=== PATIENT | female | born 1985 | race Caucasian/White ===

== ENCOUNTER 2020-03-29 15:07 | Emergency (ER) | payer OTHER ==
[2020-03-29] MEDS ORDERED: Ativan 2 MG/1 ML VIAL ONE (15:28)
[2020-03-29] MEDS ORDERED: Haldol 5 MG ONE ×3 (15:40→18:30)
[2020-03-29] MEDS ORDERED: Ativan 2 MG/1 ML VIAL IM ONE (15:42)
[2020-03-29] MEDS ORDERED: Haldol 5 MG IM ONE ×3 (15:43→18:28)
[2020-03-29] MEDS ORDERED: Zofran 4 MG/2 ML VIAL IV ONE (15:43)
[2020-03-29 17:16] LABS: Absolute Neutrophil Ct (ANC) 5.25 (1.4-6.9); BASOPHIL % 0.2 % (0.0-0.4); Basophil (Absolute #) 0.02 (0-0.4); Eosinophil % 0.5 % (0.00-5.0); Eosinophil (Absolute #) 0.04 (0-0.5); Hematocrit 47.8 % (35-47); Hemoglobin 15.8 gm/dl (12.0-16.0); Lymphocyte (Absolute #) 3.19 (1.0-4.6); Lymphocytes % 36.2 % (24.0-44.0); Mean Cell Volume 101.3 fl (78-100); Mean Corpuscular Hemoglobin 33.5 pg (26-32); Mean Corpuscular Hgb Concent. 33.1 g/dl (32-36); Monocyte (Absolute #) 0.32 (0.0-1.3); Monocytes % 3.6 % (0.0-12.0); Neutrophil % 59.5 % (36.0-66.0); Platelet Count 331 K/mm3 (150-450); Red Blood Count 4.72 M/mm3 (4.1-5.4); Red Cell Distribution Width 13.5 % (11.5-14.0); White Blood Count 8.8 K/mm3 (4.0-10.5)
--- NOTE | 2020-03-29 17:19 | ERPHSYRPT ---
- History of Present Illness Time Seen by Provider: 03/29/20 17:18 Source: patient, police Exam Limitations: clinical condition, intoxication Patient Subjective Stated Complaint: Alcohol intoxication Triage Nursing Assessment: Patient brought back to ED via EMS. Patient yelling and being belingerent to staff. Patient smells of alcohol. Officer Aaron states he was called to a scene where patient was a passenger in a carseat when the otr owner operator truck driver (her boyfriend) was performing CPR on patient. Patient's boyfriend stated she was unresponsive and he did CPR on her. Unable to obtain history on patient. Physician History: This is a 34-year-old white female who is intoxicated and brought in by the ambulance service. Per police officers and patient's significant other, the patient had been doing drugs of unspecified type as well as consuming alcohol. The amount and type is unknown. Patient arrived on the EMS bed yelling and screaming cursing. Patient significant other states that she went unresponsive in the car. This was witnessed by the police officers who were nearby and it appeared as though CPR was in progress. The significant other told the police officers that the patient went unresponsive and therefore he began CPR on her. Patient's daughter states that the patient has been drinking significantly for couple months. Patient has also not been taking her antipsychotic medications for several months. Earlier in the year, patient was seen at [facility] in the psychiatric department inpatient. Timing/Duration: today Severity: moderate Associated Symptoms: denies symptoms, other (Patient yelling and screaming stating that there is nothing wrong with her and she wants to leave.) Allergies/Adverse Reactions: No Known Drug Allergies Allergy (Unverified 03/29/20 15:13) Hx Tetanus, Diphtheria Vaccination/Date Given: (unknown) Hx Influenza Vaccination/Date Given: (unknown) Hx Pneumococcal Vaccination/Date Given: (unknown) Immunizations Up to Date: (unknown) Travel Risk - International Travel Have you traveled outside of the country in past 3 weeks: No - Coronavirus Screening Are you exhibiting any of the following symptoms?: No Close contact with a COVID-19 positive Pt in past 14-21 Days: No - Review of Systems Constitutional: No Symptoms Eyes: No Symptoms Ears, Nose, & Throat: No Symptoms Respiratory: No Symptoms Cardiac: No Symptoms Abdominal/Gastrointestinal: No Symptoms Genitourinary Symptoms: No Symptoms Musculoskeletal: No Symptoms Skin: No Symptoms Psychological: Alcohol Abuse, Drug Abuse, Emotional Lability, Mood Changes Endocrine: No Symptoms Hematologic/Lymphatic: No Symptoms Immunological/Allergic: No Symptoms All Other Systems: Reviewed and Negative - Past Medical History Pertinent Past Medical History: Yes Neurological History: No Pertinent History ENT History: No Pertinent History Cardiac History: No Pertinent History Respiratory History: No Pertinent History Endocrine Medical History: No Pertinent History Musculoskeletal History: No Pertinent History GI Medical History: No Pertinent History History: No Pertinent History Psycho-Social History: Other (Schizophrenia) Female Reproductive Disorders: No Pertinent History Other Medical History: Patient poor historian - Past Surgical History Neuro Surgical History: No Pertinent History Cardiac: No Pertinent History Respiratory: No Pertinent History Gastrointestinal: No Pertinent History Genitourinary: No Pertinent History Musculoskeletal: No Pertinent History Female Surgical History: No Pertinent History Other Surgical History: Patient poor historian - Social History Smoking Status: Unknown if ever smoked Exposure to second hand smoke: No (unknown) Patient Lives Alone: No - Female History Hx Last Menstrual Period: unknown Hx Now: (unknown) - Nursing Vital Signs Nursing Vital Signs: Initial Vital Signs Temperature 98.0 F 03/29/20 15:14 Pulse Rate 122 H 03/29/20 15:14 Respiratory Rate 20 03/29/20 15:14 Blood Pressure 136/88 03/29/20 15:14 O2 Sat by Pulse Oximetry 98 03/29/20 15:14 Pain Scale Pain Intensity 0 - Physical Exam General Appearance: other (Belligerent aggressive. Smells of alcohol) Eye Exam: PERRL/EOMI, eyes nml inspection Ears, Nose, Throat Exam: normal ENT inspection, moist mucous membranes Neck Exam: normal inspection, non-tender, supple, full range of motion Respiratory Exam: normal breath sounds, lungs clear, airway intact, No chest tenderness, No respiratory distress Cardiovascular Exam: tachycardia Gastrointestinal/Abdomen Exam: soft, normal bowel sounds, No tenderness Pelvic Exam: not done Rectal Exam: not done Back Exam: normal inspection, normal range of motion, No CVA tenderness Extremity Exam: normal inspection, normal range of motion, pelvis stable Neurologic Exam: alert, oriented x 3, cooperative, home mortgage 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 act specialist II-XII nml as tested, normal mood/affect, nml cerebellar function, nml station & gait, sensation nml Skin Exam: normal color, warm, dry Lymphatic Exam: No adenopathy SpO2 Interpretation: normal SpO2: 96 O2 Delivery: Room Air - Course Nursing assessment & vital signs reviewed: Yes EKG Interpreted by Me: RATE (78), Sinus Rhythm, NORMAL AXIS, NORMAL INTERVALS, NORMAL QRS, Other (No comparison EKG) Ordered Tests: Active Orders 24 hr Category Date Time Status EKG-ER Only STAT Care 03/29/20 15:43 Active IV Insertion STAT Care 03/29/20 15:43 Active Pulse Oximetry (ED) STAT Care 03/29/20 15:43 Active ACETAMINOPHEN Stat Lab 03/29/20 17:10 Completed CBC W DIFF Stat Lab 03/29/20 17:10 Completed CMP Stat Lab 03/29/20 17:10 Completed CULTURE,URINE Stat Lab 03/29/20 18:08 Received ETHYL ALCOHOL Stat Lab 03/29/20 17:10 Completed HCG,QUALITATIVE URINE Stat Lab 03/29/20 18:08 Completed SALICYLATE Stat Lab 03/29/20 17:10 Completed UA W/RFX UR CULTURE Stat Lab 03/29/20 18:08 Completed Urine Triage Profile Stat Lab 03/29/20 18:08 Completed Medication Summary Discontinued Medications Generic Name Dose Route Start Last Admin Trade Name Freq PRN Reason Stop Dose Admin Ceftriaxone Sodium 1,000 mg 03/29/20 18:27 03/29/20 18:36 Rocephin 1000 Mg Inj IM 03/29/20 18:28 1,000 mg STAT ONE Administration Ceftriaxone Sodium Confirm 03/29/20 18:31 Rocephin 1000 Mg Inj Administered 03/29/20 18:32 Dose 1,000 mg .ROUTE .STK-MED ONE Haloperidol Lactate Confirm 03/29/20 15:40 Haldol 5 Mg Administered 03/29/20 15:41 Dose 5 mg .ROUTE .STK-MED ONE Haloperidol Lactate 5 mg 03/29/20 15:43 03/29/20 15:50 Haldol 5 Mg IM 03/29/20 15:44 5 mg STAT ONE Administration Haloperidol Lactate 5 mg 03/29/20 16:20 03/29/20 16:29 Haldol 5 Mg IM 03/29/20 16:21 5 mg STAT ONE Administration Haloperidol Lactate Confirm 03/29/20 16:27 Haldol 5 Mg Administered 03/29/20 16:28 Dose 5 mg .ROUTE .STK-MED ONE Haloperidol Lactate 5 mg 03/29/20 18:28 Haldol 5 Mg IM 03/29/20 18:29 STAT ONE Haloperidol Lactate Confirm 03/29/20 18:30 Haldol 5 Mg Administered 03/29/20 18:31 Dose 5 mg .ROUTE .STK-MED ONE Lidocaine HCl Confirm 03/29/20 18:31 Xylocaine 1% Hcl 20 Ml Mdv Administered 03/29/20 18:32 Dose 3 ml .ROUTE .STK-MED ONE Lorazepam Confirm 03/29/20 15:28 Ativan 2 Mg/1 Ml Vial Administered 03/29/20 15:29 Dose 2 mg .ROUTE .STK-MED ONE Lorazepam 2 mg 03/29/20 15:42 03/29/20 15:51 Ativan 2 Mg/1 Ml Vial IM 03/29/20 15:43 2 mg STAT ONE Administration Ondansetron HCl 4 mg 03/29/20 15:43 03/29/20 18:37 Zofran 4 Mg/2 Ml Vial IV 03/29/20 15:44 Not Given STAT ONE Lab/Rad Data: Laboratory Result Diagrams 03/29/20 17:10 03/29/20 17:10 Laboratory Results 03/29/20 03/29/20 03/29/20 Range/Units 18:08 18:08 18:08 WBC (4.0-10.5) K/mm3 RBC (4.1-5.4) M/mm3 Hgb (12.0-16.0) gm/dl Hct (35-47) % MCV (78-100) fl MCH (26-32) pg MCHC (32-36) g/dl RDW (11.5-14.0) % Plt Count (150-450) K/mm3 MPV (7.5-11.0) fl Gran % (36.0-66.0) % Eos # (Auto) (0-0.5) Absolute Lymphs (auto) (1.0-4.6) Absolute Monos (auto) (0.0-1.3) Lymphocytes % (24.0-44.0) % Monocytes % (0.0-12.0) % Eosinophils % (0.00-5.0) % Basophils % (0.0-0.4) % Absolute Granulocytes (1.4-6.9) Basophils # (0-0.4) Sodium (137-145) mmol/L Potassium (3.5-5.1) mmol/L Chloride (98-107) mmol/L Carbon Dioxide (22-30) mmol/L Anion Gap (5-15) MEQ/L BUN (7-17) mg/dL Creatinine (0.52-1.04) mg/dL Estimated GFR ML/MIN Glucose (74-106) mg/dL Calcium (8.4-10.2) mg/dL Total Bilirubin (0.2-1.3) mg/dL AST (14-36) U/L ALT (0-35) U/L Alkaline Phosphatase (38-126) U/L Serum Total Protein (6.3-8.2) g/dL Albumin (3.5-5.0) g/dL Urine Color YELLOW (YELLOW) Urine Appearance SLIGHTLY CLOUDY (CLEAR) Urine pH 6.0 (5-6) Ur Specific [place] 1.004 (1.005-1.025) Urine Protein NEGATIVE (Negative) Urine Ketones NEGATIVE (NEGATIVE) Urine Blood SMALL (0-5) Maged/ul Urine Nitrite NEGATIVE (NEGATIVE) Urine Bilirubin NEGATIVE (NEGATIVE) Urine Urobilinogen NEGATIVE (0-1) mg/dL Ur Leukocyte Esterase LARGE (NEGATIVE) Urine WBC (Auto) 26-50 (0-5) /HPF Urine RBC (Auto) 0-2 (0-2) /HPF U Hyaline Cast (Auto) 3-5 (0-2) /LPF U Epithel Cells (Auto) RARE (FEW) /HPF Urine Bacteria (Auto) RARE (NEGATIVE) /HPF Unidentified Crystals 2-5 (NEGATIVE) /HPF Urine Culture Reflexed ORDERED SEPARATELY (NO) Urine Glucose NEGATIVE (NEGATIVE) mg/dL Urine HCG, Qual NEGATIVE (Negative) Salicylates (2-20) mg/dL Urine Opiates Level NEGATIVE (NEGATIVE) Ur Methadone NEGATIVE (NEGATIVE) Acetaminophen (10-30) ug/ml Urine Barbiturates NEGATIVE (NEGATIVE) Ur Phencyclidine (PCP) NEGATIVE (NEGATIVE) Urine Amphetamine NEGATIVE (NEGATIVE) U Benzodiazepine Level NEGATIVE (NEGATIVE) Urine Cocaine NEGATIVE (NEGATIVE) Urine Marijuana (THC) NEGATIVE (NEGATIVE) Ethyl Alcohol (0-10) mg/dL 03/29/20 03/29/20 Range/Units 17:10 17:10 WBC 8.8 (4.0-10.5) K/mm3 RBC 4.72 (4.1-5.4) M/mm3 Hgb 15.8 (12.0-16.0) gm/dl Hct 47.8 H (35-47) % MCV 101.3 H (78-100) fl MCH 33.5 H (26-32) pg MCHC 33.1 (32-36) g/dl RDW 13.5 (11.5-14.0) % Plt Count 331 (150-450) K/mm3 MPV 8.0 (7.5-11.0) fl Gran % 59.5 (36.0-66.0) % Eos # (Auto) 0.04 (0-0.5) Absolute Lymphs (auto) 3.19 (1.0-4.6) Absolute Monos (auto) 0.32 (0.0-1.3) Lymphocytes % 36.2 (24.0-44.0) % Monocytes % 3.6 (0.0-12.0) % Eosinophils % 0.5 (0.00-5.0) % Basophils % 0.2 (0.0-0.4) % Absolute Granulocytes 5.25 (1.4-6.9) Basophils # 0.02 (0-0.4) Sodium 143 (137-145) mmol/L Potassium 3.8 (3.5-5.1) mmol/L Chloride 113 H (98-107) mmol/L Carbon Dioxide 19 L (22-30) mmol/L Anion Gap 15.0 (5-15) MEQ/L BUN 8 (7-17) mg/dL Creatinine 0.54 (0.52-1.04) mg/dL Estimated GFR > 60.0 ML/MIN Glucose 99 (74-106) mg/dL Calcium 9.2 (8.4-10.2) mg/dL Total Bilirubin 0.40 (0.2-1.3) mg/dL AST 35 (14-36) U/L ALT 30 (0-35) U/L Alkaline Phosphatase 79 (38-126) U/L Serum Total Protein 7.5 (6.3-8.2) g/dL Albumin 4.4 (3.5-5.0) g/dL Urine Color (YELLOW) Urine Appearance (CLEAR) Urine pH (5-6) Ur Specific [place] (1.005-1.025) Urine Protein (Negative) Urine Ketones (NEGATIVE) Urine Blood (0-5) Maged/ul Urine Nitrite (NEGATIVE) Urine Bilirubin (NEGATIVE) Urine Urobilinogen (0-1) mg/dL Ur Leukocyte Esterase (NEGATIVE) Urine WBC (Auto) (0-5) /HPF Urine RBC (Auto) (0-2) /HPF U Hyaline Cast (Auto) (0-2) /LPF U Epithel Cells (Auto) (FEW) /HPF Urine Bacteria (Auto) (NEGATIVE) /HPF Unidentified Crystals (NEGATIVE) /HPF Urine Culture Reflexed (NO) Urine Glucose (NEGATIVE) mg/dL Urine HCG, Qual (Negative) Salicylates < 1.0 L (2-20) mg/dL Urine Opiates Level (NEGATIVE) Ur Methadone (NEGATIVE) Acetaminophen < 10 L (10-30) ug/ml Urine Barbiturates (NEGATIVE) Ur Phencyclidine (PCP) (NEGATIVE) Urine Amphetamine (NEGATIVE) U Benzodiazepine Level (NEGATIVE) Urine Cocaine (NEGATIVE) Urine Marijuana (THC) (NEGATIVE) Ethyl Alcohol 182 H (0-10) mg/dL - Progress Progress: improved, re-examined Progress Note: 03/29/20 19:24 Medical decision making: This patient has been off her psychiatric medications for several months. She has been using illicit drugs and alcohol in an excessive manner per patient's daughter's history report. I believe this patient is a harm to herself. We will contact a [place] administrative law judge to place this patient in [facility] [place] [facility] and make arrangements for inpatient psychiatric therapy. 03/29/20 21:40 This patient has been accepted into [facility] inpatient psychiatric facility. Dr. Hernandez is the physician accepting this patient. Patient diagnosis is schizophrenia, bipolar disorder and alcohol intoxication Counseled pt/family regarding: lab results, diagnosis - Departure Departure Disposition: Transfer Clinical Impression: UTI (urinary tract infection), Schizophrenia, Acute alcohol intoxication Condition: Stable Critical Care Time: No Referrals: DOCTOR,NO FAMILY [Primary Care Provider] -
[2020-03-29 17:27] LABS: ALBUMIN 4.4 g/dL (3.5-5.0); ALKALINE PHOSPHATASE 79 U/L (38-126); BLOOD UREA NITROGEN 8 mg/dL (7-17); CHLORIDE 113 mmol/L (98-107); Calcium 9.2 mg/dL (8.4-10.2); Carbon Dioxide 19 mmol/L (22-30); Creatinine 1 0.54 mg/dL (0.52-1.04); EST GLOMERULAR FILTRATION RATE > 60.0 ML/MIN; ETHYL ALCOHOL 182 mg/dL (0-10); Glucose 99 mg/dL (74-106); Potassium 3.8 mmol/L (3.5-5.1); SGOT/AST 35 U/L (14-36); SGPT/ALT 30 U/L (0-35); SODIUM 143 mmol/L (137-145); Total Protein 7.5 g/dL (6.3-8.2)
[2020-03-29 17:29] LABS: ACETAMINOPHEN < 10 ug/ml (10-30); SALICYLATE < 1.0 mg/dL (2-20)
[2020-03-29 18:17] LABS: Appearance SLIGHTLY CLOUDY (CLEAR); Bacteria RARE /HPF (NEGATIVE); Bilirubin NEGATIVE (NEGATIVE); Blood SMALL Ery/ul (0-5); Epithelial Cells RARE /HPF (FEW); Glucose NEGATIVE (NEGATIVE); Ketones NEGATIVE (NEGATIVE); Leukocyte Esterase LARGE (NEGATIVE); Nitrite NEGATIVE (NEGATIVE); Protein,Urine Dip NEGATIVE (Negative); RBC 0-2 /HPF (0-2); Specific Gravity 1.004 (1.005-1.025); Urobilinogen NEGATIVE mg/dL (0-1); WBC 26-50 /HPF (0-5)
[2020-03-29] MEDS ORDERED: Rocephin 1000 MG INJ IM ONE (18:27)
[2020-03-29 18:29] LABS: Amphetamine,Urine NEGATIVE (NEGATIVE); Barbiturate,Urine NEGATIVE (NEGATIVE); Benzodiazepine,Urine NEGATIVE (NEGATIVE); Cocaine,Urine NEGATIVE (NEGATIVE); Methadone,Urine NEGATIVE (NEGATIVE); Opiate,Urine NEGATIVE (NEGATIVE); PCP,Urine NEGATIVE (NEGATIVE); THC,Urine NEGATIVE (NEGATIVE)
[2020-03-29] MEDS ORDERED: Rocephin 1000 MG INJ ONE (18:31)
[2020-03-29] MEDS ORDERED: XYLOCAINE 1% HCL 20 ML MDV ONE (18:31)
[2020-03-29 21:19] VITALS: BP 129/85; PULSE 74
[2020-03-30 00:03] VITALS: O2SAT 96
== END 2020-03-30 ==
LOC: ED 15:07
DX: N39.0 Urinary tract infection, site not specified (principal); F20.9 Schizophrenia, unspecified; F10.129 Alcohol abuse with intoxication, unspecified; F31.9 Bipolar disorder, unspecified
CPT/HCPCS: 36415; 80053; 80307; 81001; 84703; 85025; 87077; 87086; 87186; 93005; 94760; 96372; 99285; G0480; J0696; J1630; J2060

== ENCOUNTER 2020-04-15 19:45 | Emergency (ER) | payer OTHER ==
--- NOTE | 2020-04-15 21:02 | ERPHSYRPT ---
- History of Present Illness Time Seen by Provider: 04/15/20 20:48 Source: police (pt here for intermediate clearance) Exam Limitations: no limitations Physician History: Pt here for intermediate clearance. Pt denies chest pain, shortness of air, fever, vomiting, abdominal pain. Police state pt blew 112 on breath alcohol test. Allergies/Adverse Reactions: No Known Drug Allergies Allergy (Unverified 03/29/20 15:13) Hx Tetanus, Diphtheria Vaccination/Date Given: (unknown) Hx Influenza Vaccination/Date Given: (unknown) Hx Pneumococcal Vaccination/Date Given: (unknown) - Review of Systems Constitutional: No Fever Respiratory: No Dyspnea Cardiac: No Chest Pain Abdominal/Gastrointestinal: No Abdominal Pain, No Nausea, No Vomiting Neurological: No Headache All Other Systems: Reviewed and Negative - Past Medical History Pertinent Past Medical History: Yes Neurological History: No Pertinent History ENT History: No Pertinent History Cardiac History: No Pertinent History Respiratory History: No Pertinent History Endocrine Medical History: No Pertinent History Musculoskeletal History: No Pertinent History GI Medical History: No Pertinent History History: No Pertinent History Psycho-Social History: Other (Schizophrenia) Female Reproductive Disorders: No Pertinent History Other Medical History: Patient poor historian - Past Surgical History Neuro Surgical History: No Pertinent History Cardiac: No Pertinent History Respiratory: No Pertinent History Gastrointestinal: No Pertinent History Genitourinary: No Pertinent History Musculoskeletal: No Pertinent History Female Surgical History: No Pertinent History Other Surgical History: Patient poor historian - Social History Smoking Status: Unknown if ever smoked Exposure to second hand smoke: No (unknown) Patient Lives Alone: No - Physical Exam General Appearance: alert, other (odor of etoh on breath.) Eye Exam: PERRL/EOMI, other (accentuation of horizontal nystagmus.) Ears, Nose, Throat Exam: pharynx normal, moist mucous membranes Neck Exam: normal inspection Respiratory Exam: normal breath sounds, airway intact Cardiovascular Exam: normal heart sounds Gastrointestinal/Abdomen Exam: normal bowel sounds Back Exam: normal range of motion Extremity Exam: normal range of motion, No pedal edema Neurologic Exam: alert, oriented x 3, cooperative, sensation nml, No motor deficits Skin Exam: warm, dry SpO2 Interpretation: normal SpO2: 98 O2 Delivery: Room Air - Course Nursing assessment & vital signs reviewed: Yes - Progress Progress: unchanged - Departure Departure Disposition: Usp/Residential Clinical Impression: Alcohol intoxication Condition: Stable Critical Care Time: No Referrals: DOCTOR,NO FAMILY [Primary Care Provider] - Instructions: Alcohol Abuse and Alcoholism (DC) Additional Instructions: Follow up with private doctor tomorrow. Avoid alcohol.
[2020-04-15 21:03] VITALS: O2SAT 98
[2020-04-15 21:04] VITALS: BP 134/78; PULSE 86
== END 2020-04-15 21:59 | disposition home or self-care (01) ==
LOC: EEVIPCON 19:45 → ED 19:45
DX: F10.929 Alcohol use, unspecified with intoxication, unspecified (principal)
CPT/HCPCS: 99283

== ENCOUNTER 2021-07-19 20:06 | Observation (INO) | payer OTHER ==
[2021-07-19] MEDS ORDERED: MORPHINE SULFATE 4 MG INJ IM ONE (20:34)
[2021-07-19] MEDS ORDERED: MORPHINE SULFATE 4 MG INJ ONE ×2 (20:37→23:25)
--- NOTE | 2021-07-19 20:38 | ERPHSYRPT ---
- History of Present Illness Time Seen by Provider: 07/19/21 20:15 Historian: patient Exam Limitations: no limitations Patient Subjective Stated Complaint: pt states "I took a stool softner and I can feel it move." Triage Nursing Assessment: pt came into the er via ambulance; pt is axo x4; pt is restless, screaming, irritable; c/o constipation; pt states 10/10 pain to abd; pt states she took a stool softner 4 hours prior to coming in; pt states last BM was 2 days ago; pt denies N/V; abd is soft, tenderness; hypoactive bowel sounds in all quads; pt states she is passing gas; vitals wnl Physician History: 36-year-old female presented in the ER with chief complaint of constipation. Patient reports she recently started a new medication which probably caused her constipation to go worse. She has taken milk of mag almost 4-hour prior to arrival with no relief. She is complaining of perirectal/left lower quadran t/suprapubic area pain and it seems like there is hard stool but cannot push it out. Complaining of dull to sharp pain which comes in waves moderate to severe intensity. Denies any nausea or vomiting. No fever or chills Timing/Duration: day(s) (2), constant, gradual onset, worse Activities at Onset: rest Quality: cramping Abdominal Pain Onset Location: LLQ, suprapubic, other (perirectal ) Severity of Pain-Max: severe Severity of Pain-Current: severe Modifying Factors: Worsens With: palpation Associated Symptoms: denies symptoms Allergies/Adverse Reactions: No Known Drug Allergies Allergy (Verified 07/19/21 20:11) Home Medications: Divalproex Sodium 500 mg PO TID 07/20/21 [History] Docusate Sodium 100 mg PO BID PRN PRN 07/20/21 [History] Prazosin HCl 2 mg PO HS 07/20/21 [History] Risperidone Microspheres [Risperdal Consta] 50 mg IM UD 07/20/21 [History] Trazodone HCl 200 mg PO HS 07/20/21 [History] haloperidoL [Haloperidol] 5 mg PO TID PRN PRN 07/20/21 [History] Hx Tetanus, Diphtheria Vaccination/Date Given: No (unknown) Hx Influenza Vaccination/Date Given: No (unknown) Hx Pneumococcal Vaccination/Date Given: No (unknown) Travel Risk - International Travel Have you traveled outside of the country in past 3 weeks: No - Coronavirus Screening Are you exhibiting any of the following symptoms?: No Close contact with a COVID-19 positive Pt in past 14-21 Days: No - Vaccine Status Have you recieved a Covid-19 vaccination: Yes 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 - Vaccination Dates Dates if Unknown: unknown - Review of Systems Constitutional: No Symptoms Ears, Nose, & Throat: No Symptoms Respiratory: No Symptoms Cardiac: No Symptoms Abdominal/Gastrointestinal: Abdominal Pain, Constipation Genitourinary Symptoms: No Symptoms Musculoskeletal: No Symptoms Skin: No Symptoms Neurological: No Symptoms Endocrine: No Symptoms Hematologic/Lymphatic: No Symptoms - Past Medical History Pertinent Past Medical History: Yes Neurological History: No Pertinent History ENT History: No Pertinent History Cardiac History: No Pertinent History Respiratory History: No Pertinent History Endocrine Medical History: No Pertinent History Musculoskeletal History: No Pertinent History GI Medical History: No Pertinent History History: No Pertinent History Psycho-Social History: Bipolar, Depression, Other Female Reproductive Disorders: No Pertinent History Other Medical History: Patient poor historian - Past Surgical History Past Surgical History: Yes Neuro Surgical History: No Pertinent History Cardiac: No Pertinent History Respiratory: No Pertinent History Gastrointestinal: No Pertinent History Genitourinary: No Pertinent History Musculoskeletal: No Pertinent History Female Surgical History: Tubal Ligation, Other Other Surgical History: Patient poor historian - Social History Smoking Status: Current every day smoker Exposure to second hand smoke: Yes Drug Use: none Patient Lives Alone: No - Female History Hx Now: No - Nursing Vital Signs Nursing Vital Signs: Initial Vital Signs Temperature 97.4 F 07/19/21 20:13 Pulse Rate 94 H 07/19/21 20:13 Respiratory Rate 22 07/19/21 20:13 Blood Pressure 100/77 07/19/21 20:13 O2 Sat by Pulse Oximetry 98 07/19/21 20:13 Pain Scale Pain Intensity 0 - Physical Exam General Appearance: no apparent distress, alert Eye Exam: PERRL/EOMI Ears, Nose, Throat Exam: normal ENT inspection, pharynx normal Neck Exam: normal inspection, supple, full range of motion Respiratory Exam: normal breath sounds, lungs clear Cardiovascular Exam: regular rate/rhythm, normal heart sounds Gastrointestinal/Abdomen Exam: soft, normal bowel sounds, tenderness ( left lower abdominal tenderness), guarding Back Exam: normal inspection, normal range of motion Extremity Exam: normal inspection, normal range of motion, pelvis stable Neurologic Exam: alert, oriented x 3, cooperative Skin Exam: normal color SpO2 Interpretation: normal SpO2: 98 O2 Delivery: Room Air Ordered Tests: Medication Summary Discontinued Medications Generic Name Dose Route Start Last Admin Trade Name Freq PRN Reason Stop Dose Admin Divalproex Sodium 500 mg 07/20/21 10:00 07/21/21 09:01 Divalproex Sodium 250 Mg Tablet Delayed Release PO 08/19/21 09:59 500 mg TID DARON Administration Haloperidol 5 mg 07/20/21 10:00 07/21/21 09:00 Haloperidol 5 Mg Tablet PO 08/19/21 09:59 5 mg TID DARON Administration Haloperidol Lactate 2 mg 07/20/21 08:24 07/20/21 09:01 Haloperidol Lactate 5 Mg/Ml Vial IM 07/20/21 08:25 Not Given STAT ONE Hydromorphone HCl Confirm 07/20/21 00:08 Hydromorphone 1 Mg/1ml Inj 1 Mg/Ml Syringe Administered 07/20/21 00:09 Dose 1 mg .ROUTE .STK-MED ONE Hydromorphone HCl 1 mg 07/20/21 00:10 07/20/21 00:19 Hydromorphone 1 Mg/1ml Inj 1 Mg/Ml Syringe IV 07/20/21 00:11 Not Given STAT ONE Hydromorphone HCl 30 mg 07/20/21 08:08 07/20/21 18:18 Hydromorphone Hcl 30 Mg/30 Ml Percher Vial IV 07/25/21 08:07 30 mg UD PRN Administration PAIN Hydromorphone HCl 1 mg 07/20/21 08:27 07/20/21 09:00 Hydromorphone 1 Mg/1ml Inj 1 Mg/Ml Syringe IV 07/20/21 08:28 1 mg STAT ONE Administration Sodium Chloride 1,000 mls @ 999 mls/hr 07/19/21 21:34 07/19/21 22:39 Sodium Chloride 0.9% 1000 Ml IV 07/19/21 22:34 Infused .Q1H1M STA Infusion Sodium Chloride Confirm 07/19/21 21:40 Sodium Chloride 0.9% 1000 Ml Administered 07/19/21 21:41 Dose 1,000 mls @ ud .ROUTE .STK-MED ONE Piperacillin Sod/Tazobactam 100 mls @ 200 mls/hr 07/19/21 22:48 07/19/21 22:50 Sod 3.375 gm/ Sodium Chloride IV 07/19/21 23:17 200 mls/hr STAT ONE Administration Sodium Chloride 1,000 mls @ 125 mls/hr 07/19/21 23:00 07/21/21 05:43 Sodium Chloride 0.9% 1000 Ml IV 08/18/21 22:59 125 mls/hr .Q8H DARON Administration Sodium Chloride Confirm 07/19/21 22:49 Sodium Chloride 100ml Mini-Bag Plus Administered 07/19/21 22:50 Dose 100 mls @ ud IV .STK-MED ONE Piperacillin Sod/Tazobactam 100 mls @ 200 mls/hr 07/20/21 06:00 07/21/21 11:50 Sod 3.375 gm/ Sodium Chloride IV 07/23/21 05:59 200 mls/hr Q6HT DARON Administration Sodium Chloride Confirm 07/20/21 02:54 Sodium Chloride 100ml Mini-Bag Plus Administered 07/20/21 02:55 Dose 100 mls @ ud IV .STK-MED ONE Metronidazole 500 mg in 100 mls @ 200 mls/hr 07/20/21 23:00 07/21/21 07:36 Flagyl 500 Mg Ivpb IV 08/19/21 22:59 Not Given Q8HRT DARON Metronidazole 500 mg in 100 mls @ 200 mls/hr 07/21/21 14:00 07/21/21 14:44 Flagyl 500 Mg Ivpb IV 08/19/21 22:59 Not Given Q8HT DARON Miscellaneous Information 1 each 07/20/21 09:30 Medication Intervention 1 Each Each MC 08/19/21 09:29 .RN TO CHECK ON DARON Miscellaneous Information 1 each 07/20/21 09:30 Medication Intervention 1 Each Each PO 08/19/21 09:29 .RN TO CHECK ON DARON Morphine Sulfate 4 mg 07/19/21 20:34 02 20:38 Morphine Sulfate 4 Mg/Ml Injection IM 07/19/21 20:35 4 mg STAT ONE Administration Morphine Sulfate Confirm 07/19/21 20:37 Morphine Sulfate 4 Mg/Ml Injection Administered 07/19/21 20:38 Dose 4 mg .ROUTE .STK-MED ONE Morphine Sulfate 4 mg 07/19/21 23:26 07/19/21 23:28 Morphine Sulfate 4 Mg/Ml Injection IV 07/19/21 23:27 4 mg STAT ONE Administration Morphine Sulfate Confirm 07/19/21 23:25 Morphine Sulfate 4 Mg/Ml Injection Administered 07/19/21 23:26 Dose 4 mg .ROUTE .STK-MED ONE Morphine Sulfate 4 mg 07/20/21 01:49 07/20/21 07:32 Morphine Sulfate 4 Mg/Ml Injection IV 07/25/21 01:48 4 mg Q4H PRN PRN Administration PAIN Ondansetron HCl 4 mg 07/19/21 23:26 07/19/21 23:29 Ondansetron Hcl 4 Mg/2 Ml Vial IV 07/19/21 23:27 4 mg STAT ONE Administration Ondansetron HCl Confirm 07/19/21 23:25 Ondansetron Hcl 4 Mg/2 Ml Vial Administered 07/19/21 23:26 Dose 4 mg .ROUTE .STK-MED ONE Ondansetron HCl 4 mg 07/20/21 01:49 07/20/21 07:31 Ondansetron Hcl 4 Mg/2 Ml Vial IV 08/19/21 01:48 4 mg Q6H PRN PRN Administration NAUSEA/VOMITING Pantoprazole Sodium 40 mg 07/20/21 10:00 07/21/21 09:04 Pantoprazole 40 Mg Vial IV 08/19/21 09:59 40 mg Q24H10 DARON Administration Piperacillin Sod/Tazobactam Sod Confirm 07/19/21 22:49 Piperacillin/Tazobactam Sodium 3.375 Gm Vial Administered 07/19/21 22:50 Dose 3.375 gm IV .STK-MED ONE Piperacillin Sod/Tazobactam Sod Confirm 07/20/21 02:54 Piperacillin/Tazobactam Sodium 3.375 Gm Vial Administered 07/20/21 02:55 Dose 3.375 gm IV .STK-MED ONE Trazodone HCl 150 mg 07/20/21 22:00 07/20/21 22:06 Trazodone Hcl 150 Mg Tablet PO 08/19/21 21:59 150 mg HS DARON Administration Trazodone HCl 50 mg 07/20/21 22:00 07/20/21 22:06 Trazodone Hcl 50 Mg Tablet PO 08/19/21 21:59 50 mg HS DARON Administration Lab/Rad Data: Laboratory Result Diagrams 07/19/21 21:40 07/19/21 21:40 Laboratory Results 07/20/21 07/20/21 07/20/21 Range/Units 00:42 00:08 00:08 WBC (4.0-10.5) K/mm3 RBC (4.1-5.4) M/mm3 Hgb (12.0-16.0) gm/dl Hct (35-47) % MCV (78-100) fl MCH (26-32) pg MCHC (32-36) g/dl RDW (11.5-14.0) % Plt Count (150-450) K/mm3 MPV (7.5-11.0) fl Gran % (36.0-66.0) % Eos # (Auto) (0-0.5) Absolute Lymphs (auto) (1.0-4.6) Absolute Monos (auto) (0.0-1.3) Lymphocytes % (24.0-44.0) % Monocytes % (0.0-12.0) % Eosinophils % (0.00-5.0) % Basophils % (0.0-0.4) % Absolute Granulocytes (1.4-6.9) Basophils # (0-0.4) Sodium (137-145) mmol/L Potassium (3.5-5.1) mmol/L Chloride (98-107) mmol/L Carbon Dioxide (22-30) mmol/L Anion Gap (5-15) MEQ/L BUN (7-17) mg/dL Creatinine (0.52-1.04) mg/dL Estimated GFR ML/MIN Glucose (74-106) mg/dL Calcium (8.4-10.2) mg/dL Total Bilirubin (0.2-1.3) mg/dL AST (14-36) U/L ALT (0-35) U/L Alkaline Phosphatase (38-126) U/L Serum Total Protein (6.3-8.2) g/dL Albumin (3.5-5.0) g/dL Lipase (23-300) U/L Serum , Qual (Negative) Urine Color YELLOW (YELLOW) Urine Appearance CLEAR (CLEAR) Urine pH 7.0 (5-6) Ur Specific [place] >=1.030 (1.005-1.025) Urine Protein NEGATIVE (Negative) Urine Ketones TRACE (NEGATIVE) Urine Blood NEGATIVE (0-5) Maged/ul Urine Nitrite NEGATIVE (NEGATIVE) Urine Bilirubin NEGATIVE (NEGATIVE) Urine Urobilinogen NEGATIVE (0-1) mg/dL Ur Leukocyte Esterase NEGATIVE (NEGATIVE) Urine WBC (Auto) NONE (0-5) /HPF Urine RBC (Auto) 3-5 (0-2) /HPF U Epithel Cells (Auto) RARE (FEW) /HPF Urine Mucus (Auto) SLIGHT (NEGATIVE) /HPF Urine Culture Reflexed NO (NO) Urine Glucose NEGATIVE (NEGATIVE) mg/dL Urine Opiates Level POSITIVE (NEGATIVE) Ur Methadone NEGATIVE (NEGATIVE) Urine Barbiturates NEGATIVE (NEGATIVE) Ur Phencyclidine (PCP) NEGATIVE (NEGATIVE) Urine Amphetamine POSITIVE (NEGATIVE) U Benzodiazepine Level NEGATIVE (NEGATIVE) Urine Cocaine NEGATIVE (NEGATIVE) Urine Marijuana (THC) POSITIVE (NEGATIVE) Influenza Type A Ag NEGATIVE (NEGATIVE) Influenza Type B Ag NEGATIVE (NEGATIVE) RSV (PCR) NEGATIVE (Negative) SARS-CoV-2 (PCR) NEGATIVE (NEGATIVE) 07/19/21 07/19/21 07/19/21 Range/Units 21:40 21:40 21:40 WBC 18.6 H (4.0-10.5) K/mm3 RBC 4.32 (4.1-5.4) M/mm3 Hgb 14.3 (12.0-16.0) gm/dl Hct 42.5 (35-47) % MCV 98.4 (78-100) fl MCH 33.1 H (26-32) pg MCHC 33.6 (32-36) g/dl RDW 13.0 (11.5-14.0) % Plt Count 386 (150-450) K/mm3 MPV 7.8 (7.5-11.0) fl Gran % 83.8 H (36.0-66.0) % Eos # (Auto) 0.01 (0-0.5) Absolute Lymphs (auto) 1.67 (1.0-4.6) Absolute Monos (auto) 1.30 (0.0-1.3) Lymphocytes % 9.0 L (24.0-44.0) % Monocytes % 7.0 (0.0-12.0) % Eosinophils % 0.1 (0.00-5.0) % Basophils % 0.1 (0.0-0.4) % Absolute Granulocytes 15.65 H (1.4-6.9) Basophils # 0.01 (0-0.4) Sodium 135 L (137-145) mmol/L Potassium 3.8 (3.5-5.1) mmol/L Chloride 98 (98-107) mmol/L Carbon Dioxide 28 (22-30) mmol/L Anion Gap 12.8 (5-15) MEQ/L BUN 14 (7-17) mg/dL Creatinine 0.87 (0.52-1.04) mg/dL Estimated GFR > 60.0 ML/MIN Glucose 118 H (74-106) mg/dL Calcium 9.5 (8.4-10.2) mg/dL Total Bilirubin 0.80 (0.2-1.3) mg/dL AST 61 H (14-36) U/L ALT 36 H (0-35) U/L Alkaline Phosphatase 120 (38-126) U/L Serum Total Protein 6.8 (6.3-8.2) g/dL Albumin 4.2 (3.5-5.0) g/dL Lipase 39 (23-300) U/L Serum , Qual NEGATIVE (Negative) Urine Color (YELLOW) Urine Appearance (CLEAR) Urine pH (5-6) Ur Specific [place] (1.005-1.025) Urine Protein (Negative) Urine Ketones (NEGATIVE) Urine Blood (0-5) Maged/ul Urine Nitrite (NEGATIVE) Urine Bilirubin (NEGATIVE) Urine Urobilinogen (0-1) mg/dL Ur Leukocyte Esterase (NEGATIVE) Urine WBC (Auto) (0-5) /HPF Urine RBC (Auto) (0-2) /HPF U Epithel Cells (Auto) (FEW) /HPF Urine Mucus (Auto) (NEGATIVE) /HPF Urine Culture Reflexed (NO) Urine Glucose (NEGATIVE) mg/dL Urine Opiates Level (NEGATIVE) Ur Methadone (NEGATIVE) Urine Barbiturates (NEGATIVE) Ur Phencyclidine (PCP) (NEGATIVE) Urine Amphetamine (NEGATIVE) U Benzodiazepine Level (NEGATIVE) Urine Cocaine (NEGATIVE) Urine Marijuana (THC) (NEGATIVE) Influenza Type A Ag (NEGATIVE) Influenza Type B Ag (NEGATIVE) RSV (PCR) (Negative) SARS-CoV-2 (PCR) (NEGATIVE) - Progress Progress: improved, pain not gone completely, re-examined Progress Note: 07/19/21 23:09 She is given symptomatic treatment for pain. She also received soapsuds enema with a small bowel movement but pain is now resolved. On rectal exam she does not have any stool in the vault. Did x-rays which did not show any obvious obstruction or perforation. Patient still has tenderness, pain work-up which showed white count of [address] finding consistent with acute sigmoid diverticulitis with possible localized serosal perforation. Started on antibiotics. Patient would be admitted. 07/20/21 00:38 Multiple attempts are made to contact Dr. Rouse design and sales consultant for unassigned patients. Could not get hold of him. Discussed with Dr. Gagnon, reviewed history, work- up and agreed with admission to hospital under Dr. Rouse. Discussed with : Althea Will see patient in: hospital (observation) Counseled pt/family regarding: lab results, diagnosis, need for follow-up, rad results, smoking cessation - Departure Departure Disposition: Observation Clinical Impression: Sigmoid diverticulitis Condition: Stable Critical Care Time: No
[2021-07-19] MEDS ORDERED: Sodium Chloride 0.9% 1000 ML 1,000 ML IV STA (21:34)
[2021-07-19] MEDS ORDERED: Sodium Chloride 0.9% 1000 ML 1,000 ML ONE (21:40)
[2021-07-19 21:45] LABS: Absolute Neutrophil Ct (ANC) 15.65 (1.4-6.9); Basophil (Absolute #) 0.01 (0-0.4); Eosinophil % 0.1 % (0.00-5.0); Eosinophil (Absolute #) 0.01 (0-0.5); Hematocrit 42.5 % (35-47); Hemoglobin 14.3 gm/dl (12.0-16.0); Lymphocyte (Absolute #) 1.67 (1.0-4.6); Mean Cell Volume 98.4 fl (78-100); Mean Corpuscular Hemoglobin 33.1 pg (26-32); Mean Corpuscular Hgb Concent. 33.6 g/dl (32-36); Mean Platelet Volume 7.8 fl (7.5-11.0); Neutrophil % 83.8 % (36.0-66.0); Platelet Count 386 K/mm3 (150-450); Red Blood Count 4.32 M/mm3 (4.1-5.4); White Blood Count 18.6 K/mm3 (4.0-10.5)
[2021-07-19 21:59] LABS: ALBUMIN 4.2 g/dL (3.5-5.0); ALKALINE PHOSPHATASE 120 U/L (38-126); ANION GAP 12.8 MEQ/L (5-15); BLOOD UREA NITROGEN 14 mg/dL (7-17); CHLORIDE 98 mmol/L (98-107); Calcium 9.5 mg/dL (8.4-10.2); Carbon Dioxide 28 mmol/L (22-30); Creatinine 1 0.87 mg/dL (0.52-1.04); EST GLOMERULAR FILTRATION RATE > 60.0 ML/MIN; Glucose 118 mg/dL (74-106); LIPASE 39 U/L (23-300); Potassium 3.8 mmol/L (3.5-5.1); SGOT/AST 61 U/L (14-36); SGPT/ALT 36 U/L (0-35); SODIUM 135 mmol/L (137-145); Total Protein 6.8 g/dL (6.3-8.2)
[2021-07-19] MEDS ORDERED: Zosyn 3.375 GM Vial 3.375 GM in Sodium Chloride 100ML MINI-BAG PLUS 100 ML IV ONE (22:48)
[2021-07-19] MEDS ORDERED: Zosyn 3.375 GM Vial IV ONE (22:49)
[2021-07-19] MEDS ORDERED: Sodium Chloride 100ML MINI-BAG PLUS 100 ML IV ONE (22:49)
[2021-07-19] MEDS: Sodium Chloride 0.9% 1000 ML 1,000 ML IV SCH (22:56)
[2021-07-19] MEDS ORDERED: Zofran 4 MG/2 ML VIAL ONE (23:25)
[2021-07-19] MEDS ORDERED: MORPHINE SULFATE 4 MG INJ IV ONE (23:26)
[2021-07-19] MEDS ORDERED: Zofran 4 MG/2 ML VIAL IV ONE (23:26)
[2021-07-20] MEDS ORDERED: Hydromorphone 1 mg/ml Injection ONE (00:08)
[2021-07-20] MEDS ORDERED: Hydromorphone 1 mg/ml Injection IV ONE ×2 (00:10→08:27)
[2021-07-20 00:41] LABS: Appearance CLEAR (CLEAR); Bilirubin NEGATIVE (NEGATIVE); Blood NEGATIVE Ery/ul (0-5); Epithelial Cells RARE /HPF (FEW); Glucose NEGATIVE (NEGATIVE); Ketones TRACE (NEGATIVE); Leukocyte Esterase NEGATIVE (NEGATIVE); Mucus SLIGHT /HPF (NEGATIVE); Nitrite NEGATIVE (NEGATIVE); Protein,Urine Dip NEGATIVE (Negative); Specific Gravity >=1.030 (1.005-1.025); Urobilinogen NEGATIVE mg/dL (0-1)
[2021-07-20 00:55] LABS: Barbiturate,Urine NEGATIVE (NEGATIVE); Benzodiazepine,Urine NEGATIVE (NEGATIVE); Cocaine,Urine NEGATIVE (NEGATIVE); Methadone,Urine NEGATIVE (NEGATIVE); Opiate,Urine POSITIVE (NEGATIVE); PCP,Urine NEGATIVE (NEGATIVE); THC,Urine POSITIVE (NEGATIVE)
[2021-07-20 01:23] LABS: Amphetamine,Urine POSITIVE (NEGATIVE)
[2021-07-20 01:30] LABS: INFLUENZA A NEGATIVE (NEGATIVE); INFLUENZA B NEGATIVE (NEGATIVE); RESPIRATORY SYNCTIAL VIRUS NEGATIVE (Negative); SARS-CoV-2 Xpert Express NEGATIVE (NEGATIVE)
[2021-07-20] MEDS ORDERED: Zofran 4 MG/2 ML VIAL IV PRN (01:49)
[2021-07-20] MEDS ORDERED: Zosyn 3.375 GM Vial IV ONE (02:54)
[2021-07-20] MEDS ORDERED: Sodium Chloride 100ML MINI-BAG PLUS 100 ML IV ONE (02:54)
[2021-07-20] MEDS: MORPHINE SULFATE 4 MG INJ IV PRN ×2 (03:18→07:32)
[2021-07-20] MEDS: Zosyn 3.375 GM Vial 3.375 GM in Sodium Chloride 100ML MINI-BAG PLUS 100 ML IV SCH ×3 (04:55→17:46)
[2021-07-20 05:16] LABS: Absolute Neutrophil Ct (ANC) 14.01 (1.4-6.9); Basophil (Absolute #) 0.02 (0-0.4); Eosinophil % 0.1 % (0.00-5.0); Eosinophil (Absolute #) 0.01 (0-0.5); Hematocrit 38.5 % (35-47); Hemoglobin 12.8 gm/dl (12.0-16.0); Lymphocyte (Absolute #) 3.17 (1.0-4.6); Lymphocytes % 17.7 % (24.0-44.0); Mean Corpuscular Hemoglobin 33.2 pg (26-32); Mean Corpuscular Hgb Concent. 33.2 g/dl (32-36); Mean Platelet Volume 7.8 fl (7.5-11.0); Monocyte (Absolute #) 0.75 (0.0-1.3); Monocytes % 4.2 % (0.0-12.0); Neutrophil % 77.9 % (36.0-66.0); Platelet Count 342 K/mm3 (150-450); Red Blood Count 3.85 M/mm3 (4.1-5.4); Red Cell Distribution Width 13.1 % (11.5-14.0)
[2021-07-20 05:38] LABS: ALBUMIN 3.4 g/dL (3.5-5.0); ALKALINE PHOSPHATASE 93 U/L (38-126); ANION GAP 10.3 MEQ/L (5-15); BLOOD UREA NITROGEN 13 mg/dL (7-17); CHLORIDE 105 mmol/L (98-107); Calcium 8.1 mg/dL (8.4-10.2); Carbon Dioxide 25 mmol/L (22-30); Creatinine 1 0.65 mg/dL (0.52-1.04); EST GLOMERULAR FILTRATION RATE > 60.0 ML/MIN; Glucose 107 mg/dL (74-106); Potassium 3.8 mmol/L (3.5-5.1); SGOT/AST 39 U/L (14-36); SGPT/ALT 31 U/L (0-35); SODIUM 136 mmol/L (137-145); Total Protein 6.3 g/dL (6.3-8.2)
[2021-07-20] MEDS: Sodium Chloride 0.9% 1000 ML 1,000 ML IV SCH ×2 (07:32→20:35)
[2021-07-20] MEDS ORDERED: Haldol 5 MG IM ONE (08:24)
--- NOTE | 2021-07-20 08:50 | XRAY ---
Indication: Pain and constipation. Comparison: None KUB nonacute and nonobstructed with little to no fecal debris. Solid organs and osseous structures unremarkable.
--- NOTE | 2021-07-20 08:54 | XRAY ---
Indication: Abdomen pain, nausea, vomiting, cramping, and constipation. Multiple contiguous axial images obtained through the abdomen and pelvis using 80 cc Isovue 370 contrast. Comparison: None Lung bases demonstrates moderate dependent atelectasis with small right lower lobe bleb. No infiltrate or effusion. Heart not enlarged. Small hiatal hernia. Noncontrasted stomach and bowel loops appear nonobstructed. Normal appendix. Colon is mildly fluid distended throughout with fluid level in favoring diarrhea. Mid to proximal sigmoid demonstrates mild circumferential wall thickening with a few diverticuli and pericolonic stranding favoring diverticulitis/colitis. Tiny adjacent peritoneal air bubble (image 61, series 4) concerning for perforation. No walled off fluid collection. Remaining liver, gallbladder, pancreas, spleen, adrenal glands, kidneys, ureters, bladder, and uterus are unremarkable. Minimal aortic calcifications. No AAA or pathologic retroperitoneal lymphadenopathy. Osseous structures intact. Impression: 1. Colonic diarrhea with sigmoid diverticulitis/colitis. Suspect tiny perforation. 2. Incidental small hiatal hernia. Comment: Preliminary interpretation made by C. No critical discrepancy.
[2021-07-20] MEDS: PROTONIX 40 MG IV IV SCH (09:00)
[2021-07-20] MEDS: Haldol 5 MG PO SCH ×3 (09:02→22:07)
[2021-07-20] MEDS ORDERED: MEDICATION INTERVENTION MC SCH (09:30)
[2021-07-20] MEDS ORDERED: RISPERIDONE MICROSPHERES 50 MG/2 ML IM SCH (09:30)
[2021-07-20] MEDS ORDERED: MEDICATION INTERVENTION PO SCH (09:30)
[2021-07-20] MEDS: DILAUDID 1 MG/1ML PCA IV PRN ×2 (09:40→18:18)
[2021-07-20] MEDS ORDERED: DIVALPROEX SODIUM 500 MG PO SCH (10:00)
[2021-07-20] MEDS ORDERED: Desyrel 150 MG PO SCH (22:00)
[2021-07-20] MEDS ORDERED: NON-FORMULARY ITEM (Prazosin Hcl [Prazosin Hcl] 2 MG Capsule) PO SCH (22:00)
[2021-07-20] MEDS ORDERED: NON-FORMULARY ITEM (Trazodone Hcl [Trazodone Hcl] 100 MG Tablet) PO SCH (22:00)
[2021-07-20] MEDS ORDERED: DESYREL 50 MG PO SCH (22:00)
[2021-07-20] MEDS: FLAGYL 500 MG IVPB 500 MG/100 ML BAG IV SCH (23:05)
[2021-07-21] MEDS: Zosyn 3.375 GM Vial 3.375 GM in Sodium Chloride 100ML MINI-BAG PLUS 100 ML IV SCH ×3 (00:12→11:50)
[2021-07-21] MEDS: Sodium Chloride 0.9% 1000 ML 1,000 ML IV SCH (05:43)
[2021-07-21 06:10] LABS: Absolute Neutrophil Ct (ANC) 10.45 (1.4-6.9); Basophil (Absolute #) 0.01 (0-0.4); Eosinophil % 0.3 % (0.00-5.0); Eosinophil (Absolute #) 0.04 (0-0.5); Hematocrit 37.7 % (35-47); Hemoglobin 12.3 gm/dl (12.0-16.0); Lymphocytes % 14.4 % (24.0-44.0); Mean Cell Volume 101.3 fl (78-100); Mean Corpuscular Hemoglobin 33.1 pg (26-32); Mean Corpuscular Hgb Concent. 32.6 g/dl (32-36); Mean Platelet Volume 7.7 fl (7.5-11.0); Monocyte (Absolute #) 0.76 (0.0-1.3); Monocytes % 5.8 % (0.0-12.0); Neutrophil % 79.4 % (36.0-66.0); Platelet Count 294 K/mm3 (150-450); Red Blood Count 3.72 M/mm3 (4.1-5.4); Red Cell Distribution Width 13.4 % (11.5-14.0); White Blood Count 13.2 K/mm3 (4.0-10.5)
[2021-07-21 06:24] LABS: ALBUMIN 3.2 g/dL (3.5-5.0); ALKALINE PHOSPHATASE 116 U/L (38-126); ANION GAP 11.5 MEQ/L (5-15); BLOOD UREA NITROGEN 10 mg/dL (7-17); CHLORIDE 106 mmol/L (98-107); Carbon Dioxide 21 mmol/L (22-30); Creatinine 1 0.64 mg/dL (0.52-1.04); EST GLOMERULAR FILTRATION RATE > 60.0 ML/MIN; Glucose 66 mg/dL (74-106); Potassium 4.1 mmol/L (3.5-5.1); SGOT/AST 22 U/L (14-36); SGPT/ALT 20 U/L (0-35); SODIUM 135 mmol/L (137-145); Total Protein 6.1 g/dL (6.3-8.2)
[2021-07-21] MEDS: FLAGYL 500 MG IVPB 500 MG/100 ML BAG IV SCH (07:36)
--- NOTE | 2021-07-21 08:25 | PCM.NOTE ---
Date and Time: 07/21/21823 Subjective Assessment: c/o abdominal pain - Review of Systems Constitutional: No Fever, No Chills Eyes: No Symptoms Ears, Nose, & Throat: No Symptoms Respiratory: No Cough, No Short Of Breath Cardiac: No Chest Pain, No Edema, No Syncope Abdominal/Gastrointestinal: Abdominal Pain, No Nausea, No Vomiting, No Diarrhea Genitourinary Symptoms: No Dysuria Musculoskeletal: No Back Pain, No Neck Pain Skin: No Rash Neurological: No Dizziness, No Focal Weakness, No Sensory Changes Psychological: No Symptoms Endocrine: No Symptoms Hematologic/Lymphatic: No Symptoms Immunological/Allergic: No Symptoms Objective Exam General Appearance: no apparent distress, alert Neurologic Exam: alert, oriented x 3, cooperative, normal mood/affect, nml cerebellar function, sensation nml, No motor deficits Skin Exam: normal color, warm, dry Eye Exam: PERRL, EOMI, eyes nml inspection Ears, Nose, Throat Exam: normal ENT inspection, pharynx normal, moist mucous membranes Neck Exam: normal inspection, non-tender, supple, full range of motion Respiratory Exam: normal breath sounds, lungs clear, No respiratory distress Cardiovascular Exam: regular rate/rhythm, normal heart sounds Gastrointestinal/Abdomen Exam: normal bowel sounds, tenderness, No mass Extremity Exam: normal inspection, normal range of motion Back Exam: normal inspection, normal range of motion, No CVA tenderness, No vertebral tenderness Pelvic Exam: deferred Rectal Exam: deferred OBJECTIVE DATA Vital Signs: Vital Signs - 24 hr Temp Pulse Resp BP Pulse Ox 07/21/21 08:00 96.9 F 84 21 112/72 100 07/21/21 04:00 97.9 F 92 H 16 102/54 95 07/20/21 23:41 98.7 F 89 16 119/62 93 L 07/20/21 22:18 100 07/20/21 19:54 98.4 F 90 18 112/55 94 L 07/20/21 16:00 97.8 F 88 24 111/57 97 07/20/21 12:00 98.7 F 85 19 111/62 94 L Pain Assessment - Last Documented Pain Intensity 3 Pain Scale Used 0-10 Pain Scale Intake and Output: Intake & Output 07/18/21 07/19/21 07/20/21 07/21/21 11:59 11:59 11:59 11:59 Intake Total 267 2753 Output Total 700 1200 Balance -433 6413 Weight 90 kg 91.7 kg Lab Results: Lab Results-Last 24 Hours 07/21/21 07/21/21 Range/Units 05:50 05:50 WBC 13.2 H (4.0-10.5) K/mm3 RBC 3.72 L (4.1-5.4) M/mm3 Hgb 12.3 (12.0-16.0) gm/dl Hct 37.7 (35-47) % MCV 101.3 H (78-100) fl MCH 33.1 H (26-32) pg MCHC 32.6 (32-36) g/dl RDW 13.4 (11.5-14.0) % Plt Count 294 (150-450) K/mm3 MPV 7.7 (7.5-11.0) fl Gran % 79.4 H (36.0-66.0) % Eos # (Auto) 0.04 (0-0.5) Absolute Lymphs (auto) 1.90 (1.0-4.6) Absolute Monos (auto) 0.76 (0.0-1.3) Lymphocytes % 14.4 L (24.0-44.0) % Monocytes % 5.8 (0.0-12.0) % Eosinophils % 0.3 (0.00-5.0) % Basophils % 0.1 (0.0-0.4) % Absolute Granulocytes 10.45 H (1.4-6.9) Basophils # 0.01 (0-0.4) Sodium 135 L (137-145) mmol/L Potassium 4.1 (3.5-5.1) mmol/L Chloride 106 (98-107) mmol/L Carbon Dioxide 21 L (22-30) mmol/L Anion Gap 11.5 (5-15) MEQ/L BUN 10 (7-17) mg/dL Creatinine 0.64 (0.52-1.04) mg/dL Estimated GFR > 60.0 ML/MIN Glucose 66 L (74-106) mg/dL Calcium 8.0 L (8.4-10.2) mg/dL Total Bilirubin 1.20 (0.2-1.3) mg/dL AST 22 (14-36) U/L ALT 20 (0-35) U/L Alkaline Phosphatase 116 (38-126) U/L Serum Total Protein 6.1 L (6.3-8.2) g/dL Albumin 3.2 L (3.5-5.0) g/dL Radiology Exams: Radiology Procedures Category Date Time Status ABDOMEN AND PELVIS W CONTRAST [CT] Stat Exams 07/19/21 21:33 Completed KUB Stat Exams 07/19/21 20:50 Completed Assessment/Plan (1) Sigmoid diverticulitis Current Visit: Yes Status: Acute Code(s): K57.32 - DVTRCLI OF LG INT W/O PERFORATION OR ABSCESS W/O BLEEDING
--- NOTE | 2021-07-21 08:28 | PCM.HP ---
History of Present Illness - Chief Complaint Chief Complaint: abdominalpain for 2-3 days History of Present Illness: is a 36 year old female. presented in the ER with chief complaint of constipation. Patient reports she recently started a new medication which probably caused her constipation to go worse. She has taken milk of mag almost 4-hour prior to arrival with no relief. She is complaining of perirectal/left lower quadrant/suprapubic area pain and it seems like there is hard stool but cannot push it out. Complaining of dull to sharp pain which comes in waves moderate to severe intensity. Denies any nausea or vomiting. No fever or chills Timing/Duration: day(s) (2), constant, gradual onset, worse Activities at Onset: rest Quality: cramping Abdominal Pain Onset Location: LLQ, suprapubic, other (perirectal ) Severity of Pain-Max: severe Severity of Pain-Current: severe Modifying Factors: Worsens With: palpation Associated Symptoms: denies symptoms - Review of Systems Constitutional: No Fever, No Chills Eyes: No Symptoms Ears, Nose, & Throat: No Symptoms Respiratory: No Cough, No Short Of Breath Cardiac: No Chest Pain, No Edema, No Syncope Abdominal/Gastrointestinal: Abdominal Pain, Constipation, No Nausea, No Vomiting, No Diarrhea Genitourinary Symptoms: No Dysuria Musculoskeletal: No Back Pain, No Neck Pain Skin: No Rash Neurological: No Dizziness, No Focal Weakness, No Sensory Changes Psychological: No Symptoms Endocrine: No Symptoms Hematologic/Lymphatic: No Symptoms Immunological/Allergic: No Symptoms Medications & Allergies Home Medications: Home Medication List Divalproex Sodium 500 mg PO TID 07/20/21 [History Confirmed 07/20/21] Docusate Sodium 100 mg PO BID PRN PRN 07/20/21 [History Confirmed 07/20/21] Prazosin HCl 2 mg PO HS 07/20/21 [History Confirmed 07/20/21] Risperidone Microspheres [Risperdal Consta] 50 mg IM UD 07/20/21 [History Confirmed 07/20/21] Trazodone HCl 200 mg PO HS 07/20/21 [History Confirmed 07/20/21] haloperidoL [Haloperidol] 5 mg PO TID PRN PRN 07/20/21 [History Confirmed 07/20/21] Allergies/Adverse Reactions: Allergies Allergy/AdvReac Type Severity Reaction Status Date / Time No Known Drug Allergies Allergy Verified 07/19/21 20:11 - Past Medical History Past Medical History: Yes Neurological History: No Pertinent History ENT History: No Pertinent History Cardiac History: No Pertinent History Respiratory History: No Pertinent History Endocrine Medical History: No Pertinent History Musculoskelatal History: No Pertinent History GI Medical History: Diverticulosis History: No Pertinent History Pyscho-Social History: Anxiety, Bipolar, Depression, Other Reproductive Disorders: No Pertinent History Comment: Patient poor historian. scizoaffective bipolar. ptsd - Female History Are you now?: No - Past Surgical History Past Surgical History: Yes Neuro Surgical History: No Pertinent History Cardiac History: No Pertinent History Respiratory Surgery: No Pertinent History GI Surgical History: No Pertinent History Genitourinary Surgical Hx: No Pertinent History Musculskeletal Surgical Hx: No Pertinent History Female Surgical History: Tubal Ligation, Other Other Surgical History: Patient poor historian. ablation - Social History Smoking Status: Current every day smoker How long have you smoked: 24 yrs Exposure to second hand smoke: Yes Alcohol: Occasionally Drug Use: none - Physical Exam Vital Signs: Vital Signs - 24 hr Temp Pulse Resp BP Pulse Ox 07/21/21 08:00 96.9 F 84 21 112/72 100 07/21/21 04:00 97.9 F 92 H 16 102/54 95 07/20/21 23:41 98.7 F 89 16 119/62 93 L 07/20/21 22:18 100 07/20/21 19:54 98.4 F 90 18 112/55 94 L 07/20/21 16:00 97.8 F 88 24 111/57 97 07/20/21 12:00 98.7 F 85 19 111/62 94 L General Appearance: no apparent distress, alert Neurologic Exam: alert, oriented x 3, cooperative, normal mood/affect, nml cerebellar function, nml station & gait, sensation nml, No motor deficits Eye Exam: PERRL/EOMI, eyes nml inspection Ears, Nose, Throat Exam: normal ENT inspection, TMs normal, pharynx normal, moist mucous membranes Neck Exam: normal inspection, non-tender, supple, full range of motion Respiratory Exam: normal breath sounds, lungs clear, No respiratory distress Cardiovascular Exam: regular rate/rhythm, normal heart sounds, normal peripheral pulses Gastrointestinal/Abdomen Exam: tenderness, distention, No mass Back Exam: normal inspection, normal range of motion, No CVA tenderness, No vertebral tenderness Extremity Exam: normal inspection, normal range of motion, pelvis stable Skin Exam: normal color, warm, dry, No rash Lymphatic Exam: No adenopathy Results - Labs Lab/Micro Results: Lab Results-Last 24 Hours 07/21/21 07/21/21 Range/Units 05:50 05:50 WBC 13.2 H (4.0-10.5) K/mm3 RBC 3.72 L (4.1-5.4) M/mm3 Hgb 12.3 (12.0-16.0) gm/dl Hct 37.7 (35-47) % MCV 101.3 H (78-100) fl MCH 33.1 H (26-32) pg MCHC 32.6 (32-36) g/dl RDW 13.4 (11.5-14.0) % Plt Count 294 (150-450) K/mm3 MPV 7.7 (7.5-11.0) fl Gran % 79.4 H (36.0-66.0) % Eos # (Auto) 0.04 (0-0.5) Absolute Lymphs (auto) 1.90 (1.0-4.6) Absolute Monos (auto) 0.76 (0.0-1.3) Lymphocytes % 14.4 L (24.0-44.0) % Monocytes % 5.8 (0.0-12.0) % Eosinophils % 0.3 (0.00-5.0) % Basophils % 0.1 (0.0-0.4) % Absolute Granulocytes 10.45 H (1.4-6.9) Basophils # 0.01 (0-0.4) Sodium 135 L (137-145) mmol/L Potassium 4.1 (3.5-5.1) mmol/L Chloride 106 (98-107) mmol/L Carbon Dioxide 21 L (22-30) mmol/L Anion Gap 11.5 (5-15) MEQ/L BUN 10 (7-17) mg/dL Creatinine 0.64 (0.52-1.04) mg/dL Estimated GFR > 60.0 ML/MIN Glucose 66 L (74-106) mg/dL Calcium 8.0 L (8.4-10.2) mg/dL Total Bilirubin 1.20 (0.2-1.3) mg/dL AST 22 (14-36) U/L ALT 20 (0-35) U/L Alkaline Phosphatase 116 (38-126) U/L Serum Total Protein 6.1 L (6.3-8.2) g/dL Albumin 3.2 L (3.5-5.0) g/dL - Radiology Impressions Radiology Exams & Impressions: Radiology Procedures Category Date Time Status ABDOMEN AND PELVIS W CONTRAST [CT] Stat Exams 07/19/21 21:33 Completed KUB Stat Exams 07/19/21 20:50 Completed Assessment/Plan (1) Sigmoid diverticulitis Current Visit: Yes Status: Acute Assessment & Plan: Chief Complaint Diagnosis Sigmoid diverticulitis Allergies Allergy/AdvReac Type Severity Reaction Status Date / Time No Known Drug Allergies Allergy Verified 07/19/21 20:11 Vital Signs (Last 24 hours) Temp Pulse Resp BP Pulse Ox 07/21/21 08:00 96.9 F 84 21 112/72 100 07/21/21 04:00 97.9 F 92 H 16 102/54 95 07/20/21 23:41 98.7 F 89 16 119/62 93 L 07/20/21 22:18 100 07/20/21 19:54 98.4 F 90 18 112/55 94 L 07/20/21 16:00 97.8 F 88 24 111/57 97 07/20/21 12:00 98.7 F 85 19 111/62 94 L Home Medications Medication Instructions Recorded Confirmed Last Taken Type Divalproex Sodium 500 mg PO TID 07/20/21 07/20/21 Unknown History Docusate Sodium 100 mg PO BID PRN PRN 07/20/21 07/20/21 Unknown History Prazosin HCl 2 mg PO HS 07/20/21 07/20/21 Unknown History Risperidone Microspheres 50 mg IM UD 07/20/21 07/20/21 Unknown History [Risperdal Consta] Trazodone HCl 200 mg PO HS 07/20/21 07/20/21 Unknown History haloperidoL [Haloperidol] 5 mg PO TID PRN PRN 07/20/21 07/20/21 Unknown History Current Medications Generic Name Dose Route Start Last Admin Trade Name Freq PRN Reason Stop Dose Admin Divalproex Sodium 500 mg 07/20/21 10:00 02/11/22 22:03 Divalproex Sodium 250 Mg Tablet Delayed Release PO 08/19/21 09:59 500 mg TID DARON Administration Haloperidol 5 mg 07/20/21 10:00 07/20/21 22:07 Haloperidol 5 Mg Tablet PO 08/19/21 09:59 5 mg TID DARON Administration Hydromorphone HCl 30 mg 07/20/21 08:08 07/20/21 18:18 Hydromorphone Hcl 30 Mg/30 Ml Technician [employer] Vial IV 07/25/21 08:07 30 mg UD PRN Administration PAIN Sodium Chloride 1,000 mls @ 125 mls/hr 07/19/21 23:00 07/21/21 05:43 Sodium Chloride 0.9% 1000 Ml IV 08/18/21 22:59 125 mls/hr .Q8H DARON Administration Piperacillin Sod/Tazobactam 100 mls @ 200 mls/hr 07/20/21 06:00 07/21/21 05:43 Sod 3.375 gm/ Sodium Chloride IV 07/23/21 05:59 200 mls/hr Q6HT DARON Administration Metronidazole 500 mg in 100 mls @ 200 mls/hr 07/21/21 14:00 Flagyl 500 Mg Ivpb IV 08/19/21 22:59 Q8HT DARON Miscellaneous Information 1 each 07/20/21 09:30 Medication Intervention 1 Each Each MC 08/19/21 09:29 .RN TO CHECK ON DARON Miscellaneous Information 1 each 07/20/21 09:30 Medication Intervention 1 Each Each PO 08/19/21 09:29 .RN TO CHECK ON DARON Ondansetron HCl 4 mg 07/20/21 01:49 07/20/21 07:31 Ondansetron Hcl 4 Mg/2 Ml Vial IV 08/19/21 01:48 4 mg Q6H PRN PRN Administration NAUSEA/VOMITING Pantoprazole Sodium 40 mg 07/20/21 10:00 07/20/21 09:00 Pantoprazole 40 Mg Vial IV 08/19/21 09:59 40 mg Q24H10 DARON Administration Trazodone HCl 150 mg 07/20/21 22:00 07/20/21 22:06 Trazodone Hcl 150 Mg Tablet PO 08/19/21 21:59 150 mg HS DARON Administration Trazodone HCl 50 mg 07/20/21 22:00 07/20/21 22:06 Trazodone Hcl 50 Mg Tablet PO 08/19/21 21:59 50 mg HS DARON Administration Discontinued Medications Generic Name Dose Route Start Last Admin Trade Name Amando PRN Reason Stop Dose Admin Haloperidol Lactate 2 mg 07/20/21 08:24 07/20/21 09:01 Haloperidol Lactate 5 Mg/Ml Vial IM 07/20/21 08:25 Not Given STAT ONE Hydromorphone HCl Confirm 07/20/21 00:08 Hydromorphone 1 Mg/1ml Inj 1 Mg/Ml Syringe Administered 07/20/21 00:09 Dose 1 mg .ROUTE .STK-MED ONE Hydromorphone HCl 1 mg 07/20/21 00:10 07/20/21 00:19 Hydromorphone 1 Mg/1ml Inj 1 Mg/Ml Syringe IV 07/20/21 00:11 Not Given STAT ONE Hydromorphone HCl 1 mg 07/20/21 08:27 07/20/21 09:00 Hydromorphone 1 Mg/1ml Inj 1 Mg/Ml Syringe IV 07/20/21 08:28 1 mg STAT ONE Administration Sodium Chloride 1,000 mls @ 999 mls/hr 07/19/21 21:34 07/19/21 22:39 Sodium Chloride 0.9% 1000 Ml IV 07/19/21 22:34 Infused .Q1H1M STA Infusion Sodium Chloride Confirm 07/19/21 21:40 Sodium Chloride 0.9% 1000 Ml Administered 07/19/21 21:41 Dose 1,000 mls @ ud .ROUTE .STK-MED ONE Piperacillin Sod/Tazobactam 100 mls @ 200 mls/hr 07/19/21 22:48 07/19/21 22:50 Sod 3.375 gm/ Sodium Chloride IV 07/19/21 23:17 200 mls/hr STAT ONE Administration Sodium Chloride Confirm 07/19/21 22:49 Sodium Chloride 100ml Mini-Bag Plus Administered 07/19/21 22:50 Dose 100 mls @ ud IV .STK-MED ONE Sodium Chloride Confirm 07/20/21 02:54 Sodium Chloride 100ml Mini-Bag Plus Administered 07/20/21 02:55 Dose 100 mls @ ud IV .STK-MED ONE Metronidazole 500 mg in 100 mls @ 200 mls/hr 07/20/21 23:00 07/21/21 07:36 Flagyl 500 Mg Ivpb IV 08/19/21 22:59 Not Given Q8HRT DARON Morphine Sulfate 4 mg 07/19/21 20:34 07/19/21 20:38 Morphine Sulfate 4 Mg/Ml Injection IM 07/19/21 20:35 4 mg STAT ONE Administration Morphine Sulfate Confirm 07/19/21 20:37 Morphine Sulfate 4 Mg/Ml Injection Administered 07/19/21 20:38 Dose 4 mg .ROUTE .STK-MED ONE Morphine Sulfate 4 mg 07/19/21 23:26 07/19/21 23:28 Morphine Sulfate 4 Mg/Ml Injection IV 07/19/21 23:27 4 mg STAT ONE Administration Morphine Sulfate Confirm 07/19/21 23:25 Morphine Sulfate 4 Mg/Ml Injection Administered 07/19/21 23:26 Dose 4 mg .ROUTE .STK-MED ONE Morphine Sulfate 4 mg 07/20/21 01:49 07/20/21 07:32 Morphine Sulfate 4 Mg/Ml Injection IV 07/25/21 01:48 4 mg Q4H PRN PRN Administration PAIN Ondansetron HCl 4 mg 07/19/21 23:26 07/19/21 23:29 Ondansetron Hcl 4 Mg/2 Ml Vial IV 07/19/21 23:27 4 mg STAT ONE Administration Ondansetron HCl Confirm 07/19/21 23:25 Ondansetron Hcl 4 Mg/2 Ml Vial Administered 07/19/21 23:26 Dose 4 mg .ROUTE .STK-MED ONE Piperacillin Sod/Tazobactam Sod Confirm 07/19/21 22:49 Piperacillin/Tazobactam Sodium 3.375 Gm Vial Administered 07/19/21 22:50 Dose 3.375 gm IV .STK-MED ONE Piperacillin Sod/Tazobactam Sod Confirm 07/20/21 02:54 Piperacillin/Tazobactam Sodium 3.375 Gm Vial Administered 07/20/21 02:55 Dose 3.375 gm IV .STK-MED ONE Intake & Output (Last 24 hours) 07/18/21 07/19/21 07/20/21 07/21/21 11:59 11:59 11:59 11:59 Intake Total 267 2753 Output Total 700 1200 Balance -433 1553 Weight 90 kg 91.7 kg Laboratory Results (Last 24 hours) 07/21/21 07/21/21 05:50 05:50 WBC 13.2 H RBC 3.72 L Hgb 12.3 Hct 37.7 MCV 101.3 H MCH 33.1 H MCHC 32.6 RDW 13.4 Plt Count 294 MPV 7.7 Gran % 79.4 H Eos # (Auto) 0.04 Absolute Lymphs (auto) 1.90 Absolute Monos (auto) 0.76 Lymphocytes % 14.4 L Monocytes % 5.8 Eosinophils % 0.3 Basophils % 0.1 Absolute Granulocytes 10.45 H Basophils # 0.01 Sodium 135 L Potassium 4.1 Chloride 106 Carbon Dioxide 21 L Anion Gap 11.5 BUN 10 Creatinine 0.64 Estimated GFR > 60.0 Glucose 66 L Calcium 8.0 L Total Bilirubin 1.20 AST 22 ALT 20 Alkaline Phosphatase 116 Serum Total Protein 6.1 L Albumin 3.2 L Orders (Last 24 hours) Category Date Time Status Consult Surgery ROUTINE Cons 07/20/21 08:35 Active NPO Diet 07/20/21 08:55 Active CBC W DIFF AM.LAB Lab 07/21/21 05:50 Completed CMP AM.LAB Lab 07/21/21 05:50 Completed Divalproex Sodium 250 mg [Divalproex DR 250 mg Tab] Med 07/20/21 10:00 Active 500 mg PO TID Haloperidol 5 mg [Haldol 5 MG] Med 07/20/21 10:00 Active 5 mg PO TID Haloperidol Lactate 5 mg [Haldol 5 MG] Med 07/20/21 08:24 Discontinued 2 mg IM STAT ONE Hydromorphone 1 mg/1Ml Inj [Hydromorphone 1 mg/ml Med 07/20/21 08:27 Discontinued Injection] 1 mg IV STAT ONE Hydromorphone HCl 30 mg/30 ml* [Dilaudid 1 mg/1Ml DIRECTOR RE[employer] Med 07/20/21 08:08 Active *] 30 mg IV UD PRN Medication Intervention Med 07/20/21 09:30 Active 1 each MC .RN TO CHECK ON Medication Intervention Med 07/20/21 09:30 Active 1 each PO .RN TO CHECK ON Metronidazole 500 mg Premix [Flagyl 500 mg Ivpb] Med 07/20/21 23:00 Discontinued 500 mg in 100 ml IV Q8HRT Metronidazole 500 mg Premix [Flagyl 500 mg Ivpb] Med 07/21/21 14:00 Active 500 mg in 100 ml IV Q8HT Pantoprazole 40 mg [Protonix 40 mg IV] Med 07/20/21 10:00 Active 40 mg IV Q24H10 Trazodone HCl 150 mg [Desyrel 150 MG] Med 07/20/21 22:00 Active 150 mg PO HS Trazodone HCl 50 mg [Desyrel 50 mg] Med 07/20/21 22:00 Active 50 mg PO HS Patient Care Notes (Last 24 hours) 07/20/21 09:54 Nursing Note by Eriberto Carrillo [id number] This nurse to pt bedside after pt told HS and NURSING STUDENT she was signing out. Dr Haque also present. PT presented as very tearful and anxious pacing at bedside. This RN spoke with pt about her desire to leave and MD went over risk rt perferated Diverticulitis. PT states she wanted to leave because she had not had her Halodol she uses TID and had missed 3 doses, wants to drink something "my mouth is so dry I'm miserable" , pt wanting items from home, and pt wanting to smoke. PT states to MD and this RN that "the medicines aren't helping my pain and I am stuck here for no reason then" MD changed medication to Dilaudid DIRECT[employer], a one time STAT 1mg dilaudid dose, STAT 2mg Halodol IM (pt did refuse dt not wanting shot). This RN called pt's mother and made arrangement for her to bring items from home, took pt outside to allow her to get fresh air, gave her morning PO dose of Halodol. Pt very calm after interventions, understands the risk of leaving and is willing to stay, and states pain is much better controlled. Initialized on 07/20/21 09:54 - END OF NOTE 07/20/21 08:48 Nursing Note by Alaina Diaz [id number] DR HAQUE ROUNDED ON PATIENT AND WANTS A SURGERY CONSULT. NURSE ERIBERTO PAGED CASE WORKER DR ESPITIA TO SEE WHEN THE EARLIEST HE COULD ROUND ON PATIENT. PATIENT VERY ANXIOUS AND WANTING TO DISCHARGE AMA. BOYFRIEND IN ROOM. HEGNEW 07-20-21 Initialized on 07/20/21 08:48 - END OF NOTE Code(s): K57.32 - DVTRCLI OF LG INT W/O PERFORATION OR ABSCESS W/O BLEEDING
[2021-07-21] MEDS: Haldol 5 MG PO SCH (09:00)
[2021-07-21] MEDS: PROTONIX 40 MG IV IV SCH (09:04)
[2021-07-21 11:54] VITALS: BP 102/68; PULSE 83
[2021-07-21] MEDS ORDERED: FLAGYL 500 MG IVPB 500 MG/100 ML BAG IV SCH (14:00)
[2021-07-21 21:01] VITALS: O2SAT 98
--- NOTE | 2021-07-23 08:50 | CONS ---
CONSULT DATE: 07/20/2021 HISTORY: The patient apparently had a little bit of constipation, took stool softener and had some aches and pains. Apparently came in yesterday. She had a CT scan with question of some inflammation of the colon and colitis versus diverticulitis and tiny bubble of air that may be microperforation. No large collections. No massive free air. Apparently they did not call the surgeon control systems developer at the time when she came in. They called during the day today and asked for surgical consult. PAST MEDICAL HISTORY: Bipolar depression. History of schizophrenia. She is a little bit of a poor historian. PAST SURGICAL HISTORY: She had ablation before. She had tubal before. HOME MEDICATIONS: Per AUG. ALLERGIES: NKDA. FAMILY HISTORY: I think she mentioned an uncle had colon cancer, some relative had colon cancer. SOCIAL HISTORY: No alcohol abuse. She is a smoker. REVIEW OF SYSTEMS: Fourteen systems reviewed per admission assessment. No chest pain or palpitations other systems negative or noncontributory as above and per preadmission questionnaire. LAB DATA AND TESTS: White count apparently was 18. She is currently afebrile. Vital signs stable, nontoxic. PHYSICAL EXAMINATION: GENERAL: No acute distress. HEENT: Sclera nonicteric. NECK: No JVD. CHEST: Equal excursion, nonlabored breathing. CVS: Regular rhythm and pulse. ABDOMEN: Soft. She had some mild tenderness left lower abdomen. No rebound currently. EXTREMITIES: No cyanosis. NEURO: Alert, moving extremities grossly symmetrically. PSYCH: Appropriate mood and affect. IMPRESSION: Nontoxic 36-year-old female. She did have history of colonoscopy, had some diverticulosis in the past. She is admitted for question of acute diverticulitis. She may have a tiny bubble microperforation whether or not her pain is a little bit better. She is on IV antibiotics. She is nontoxic. No emergent surgical intervention necessary at this time. I recommend continued IV antibiotics, continue bowel rest. No emergent surgical intervention necessary. She and family at the bedside agreed with the plan. Will add IV Flagyl just for broad range coverage. Follow serial labs, serial exams. She understands if she significantly worsens she might need consideration of urgent/emergent surgery which could include resection and ostomy temporarily. If she fails to improve over a few days, she might need follow up CT scan. If she continues to improve and gets considerably better then would likely benefit from following up in the office or whoever did her last colonoscopy in six to eight weeks for follow up colonoscopy to make sure there is no other etiology. She and the family agreed to the plan. Continue IV antibiotics, continue bowel rest. If pain and white count improve significantly we then would resume her diet. Again, she understands and agrees to the planned procedure. I will follow with you. She understands that I will be tied up in [place] tomorrow and will probably be later in the day before I get a chance to check on her.
== END 2021-07-21 14:54 | disposition home or self-care (01) ==
LOC: ED 20:06 → MED SURG 07-20 01:42
PROVIDERS: ADMIT Family Medicine; ATTEND Family Medicine
DX: K57.32 Diverticulitis of large intestine without perforation or abscess without bleeding (principal); Z72.0 Tobacco use; Z20.828 Contact with and (suspected) exposure to other viral communicable diseases; Z79.899 Other long term (current) drug therapy
CPT/HCPCS: 0241U; 36000; 36415; 74018; 74177; 80053; 80307; 81001; 81025; 83690; 85025; 93268; 96360; 96374; 96375; 96376; 99285; G0378; 96372; J1170; J2270; J2405; A9270-GY

== ENCOUNTER 2021-10-30 02:04 | Emergency (ER) | payer OTHER ==
[2021-10-30 02:25] VITALS: BP 138/83; PULSE 77
--- NOTE | 2021-10-30 02:54 | ERPHSYRPT ---
- History of Present Illness Time Seen by Provider: 10/30/21 02:25 Source: patient Exam Limitations: no limitations Patient Subjective Stated Complaint: pt states she had hemmorrhoid surgery with dr linn 9 days ago, states that she feels like she is "ripping from my anus to my vagina, I ahave been moving and I think I overdid it". States " I think the bands are ripped off where i had my surgery". Triage Nursing Assessment: pt is alert and oriented, talking frantically and stating that she has pain in her anus and vagina that she rates at 7/10. vitals within normal limits. no fever Physician History: This is a 36-year-old white female who underwent a internal hemorrhoid banding by Dr. Resendez on 22 October. Patient had appointment on 10/29/2021 but forgot to be evaluated at that appointment. Postoperative instructions told her not to be engaging in any lifting or excessive activity. She was told that she could begin taking ibuprofen on day 7 postoperatively. She was also told to perform sitz bath with Epson salts. Patient stated that she had to help move her and her family out of their residence into apartments in the last several days. She had not started ibuprofen. She also states she has been unable to perform sitz bath's. There has been no bleeding postoperatively. He has been able to defecate and urinate. Patient has a rescheduled appointment on 10/31/2021. Timing/Duration: yesterday Activites at Onset: physical activity Quality: burning, sharpness, other (Tearing) Onset Location: vaginal, other (Inguinal) Pain Radiation: other (Pain between the anus and perineum and vaginal vault) Severity of Pain-Max: moderate Severity of Pain-Current: moderate Sexual intercourse history: non-contributory Modifying Factors: Improves With: defecating, urinating Associated Symptoms: denies symptoms Allergies/Adverse Reactions: No Known Drug Allergies Allergy (Verified 10/22/21 09:55) Home Medications: Divalproex Sodium 500 mg PO TID 07/20/21 [History] Prazosin HCl 2 mg PO HS 07/20/21 [History] Trazodone HCl 200 mg PO HS 07/20/21 [History] haloperidoL [Haloperidol] 5 mg PO TID PRN PRN 07/20/21 [History] Ibuprofen 600 mg PO DAILY PRN 10/22/21 [History] Hx Tetanus, Diphtheria Vaccination/Date Given: No Hx Influenza Vaccination/Date Given: No Hx Pneumococcal Vaccination/Date Given: No Travel Risk - International Travel Have you traveled outside of the country in past 3 weeks: No - Coronavirus Screening Are you exhibiting any of the following symptoms?: No Close contact with a COVID-19 positive Pt in past 14-21 Days: No - Vaccine Status Have you recieved a Covid-19 vaccination: Yes 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 - Vaccination Dates Dates if Unknown: unknown - Review of Systems Constitutional: No Symptoms Eyes: No Symptoms Ears, Nose, & Throat: No Symptoms Respiratory: No Symptoms Cardiac: No Symptoms Abdominal/Gastrointestinal: No Symptoms Genitourinary Symptoms: Other (Painful perineum) Musculoskeletal: No Symptoms Skin: No Symptoms Neurological: No Symptoms Psychological: No Symptoms Endocrine: No Symptoms Hematologic/Lymphatic: No Symptoms Immunological/Allergic: No Symptoms All Other Systems: Reviewed and Negative - Past Medical History Pertinent Past Medical History: Yes Neurological History: No Pertinent History ENT History: No Pertinent History Cardiac History: No Pertinent History Respiratory History: No Pertinent History Endocrine Medical History: No Pertinent History Musculoskeletal History: No Pertinent History GI Medical History: Diverticulitis, Ulcer History: No Pertinent History Psycho-Social History: Bipolar, Depression, Other Female Reproductive Disorders: No Pertinent History Other Medical History: ptsd.nightmare disorder. H.pylori infection - Past Surgical History Past Surgical History: Yes Neuro Surgical History: No Pertinent History Cardiac: No Pertinent History Respiratory: No Pertinent History Gastrointestinal: No Pertinent History Genitourinary: No Pertinent History Musculoskeletal: No Pertinent History Female Surgical History: Tubal Ligation, Other Other Surgical History: uterine ablation, egd, colonoscopy, hemmorhoid banding and polyps removed - Social History Smoking Status: Current every day smoker How long have you smoked: 24yrs Exposure to second hand smoke: Yes Drug Use: none Patient Lives Alone: No - Female History Hx Last Menstrual Period: 2018, ablasion and tubal ligation Hx Now: No - Nursing Vital Signs Nursing Vital Signs: Initial Vital Signs Temperature 97.2 F 10/30/21 02:07 Pulse Rate 77 10/30/21 02:07 Respiratory Rate 18 10/30/21 02:07 Blood Pressure 138/83 10/30/21 02:07 Pain Scale Pain Intensity 7 - Physical Exam General Appearance: mild distress, alert, anxiety Eye Exam: PERRL/EOMI, eyes nml inspection Ears, Nose, Throat Exam: normal ENT inspection, dry mucous membranes Neck Exam: normal inspection, non-tender, supple, full range of motion Respiratory Exam: airway intact, No chest tenderness, No respiratory distress Gastrointestinal/Abdomen Exam: No tenderness Pelvic Exam: not done Rectal Exam: tenderness (Tenderness in the perianal and perineum. No evidence of bleeding. No evidence of infection) Back Exam: normal inspection, normal range of motion, No CVA tenderness, No vertebral tenderness Extremity Exam: normal inspection, normal range of motion, pelvis stable Neurologic Exam: alert, oriented x 3, cooperative, senior architect II-XII nml as tested, normal mood/affect, nml cerebellar function, nml station & gait, sensation nml Skin Exam: normal color, warm, dry Lymphatic Exam: No adenopathy SpO2 Interpretation: normal O2 Delivery: Room Air - Course Nursing assessment & vital signs reviewed: Yes - Progress Progress: unchanged Air Movement: good Counseled pt/family regarding: diagnosis, need for follow-up - Departure Departure Disposition: Home Clinical Impression: Perineum pain, female, Postoperative pain Condition: Stable Critical Care Time: No Referrals: [facility] [Primary Care Provider] - Follow up/PCP as directed Additional Instructions: Back your diet off to clear liquids and full liquid diet. Use both Tylenol and ibuprofen for pain control. Begin sitz bath 2-3 times a day using warm soapy water or warm water with Epson salts. Do not lift anything more than 5 pounds. Keep your appointment with your surgeon on 10/31/2021.
== END 2021-10-30 03:05 | disposition home or self-care (01) ==
LOC: ED 02:04
DX: G89.18 Other acute postprocedural pain (principal); R10.2 Pelvic and perineal pain; Z79.899 Other long term (current) drug therapy; Z72.0 Tobacco use
CPT/HCPCS: 99283

== ENCOUNTER 2021-11-29 16:04 | Emergency (ER) | payer OTHER ==
[2021-11-29 17:12] LABS: Absolute Neutrophil Ct (ANC) 5.06 x10^3/uL (1.4-6.9); Basophil (Absolute #) 0.05 x10^3/uL (0-0.4); Eosinophil % 1.3 % (0.00-5.0); Eosinophil (Absolute #) 0.11 x10^3/uL (0-0.5); Hematocrit 43.7 % (35-47); Hemoglobin 14.7 g/dL (12.0-16.0); Lymphocyte (Absolute #) 2.68 x10^3/uL (1.0-4.6); Lymphocytes % 32.1 % (24.0-44.0); Mean Cell Volume 96.9 fL (78-100); Mean Corpuscular Hemoglobin 32.6 pg (26-32); Mean Corpuscular Hgb Concent. 33.6 g/dL (32-36); Mean Platelet Volume 8.2 fL (7.5-11.0); Monocyte (Absolute #) 0.43 x10^3/uL (0.0-1.3); Monocytes % 5.1 % (0.0-12.0); Neutrophil % 60.7 % (36.0-66.0); Platelet Count 286 x10^3/uL (150-450); Red Blood Count 4.51 x10^6/uL (4.1-5.4); Red Cell Distribution Width 12.1 % (11.5-14.0); White Blood Count 8.4 x10^3/uL (4.0-10.5)
[2021-11-29 17:37] LABS: ALKALINE PHOSPHATASE 71 U/L (38-126); BLOOD UREA NITROGEN 16 mg/dL (7-17); CHLORIDE 104 mmol/L (98-107); Calcium 9.3 mg/dL (8.4-10.2); Carbon Dioxide 26 mmol/L (22-30); Creatinine 1 0.73 mg/dL (0.52-1.04); EST GLOMERULAR FILTRATION RATE > 60.0 ML/MIN; Glucose 97 mg/dL (74-106); LIPASE 63 U/L (23-300); Potassium 3.9 mmol/L (3.5-5.1); SGOT/AST 23 U/L (14-36); SGPT/ALT 15 U/L (0-35); SODIUM 138 mmol/L (137-145); Total Protein 6.9 g/dL (6.3-8.2)
--- NOTE | 2021-11-29 18:53 | ERPHSYRPT ---
- History of Present Illness Time Seen by Provider: 11/29/21 16:40 Historian: patient, EMS Exam Limitations: no limitations Patient Subjective Stated Complaint: Pt states that she had a colonoscopy on October 22 and she feels like she has fistulas inside her vagina and down her legs and she thinks that poop is going down inside her legs and she feels her but getting smaller everytime she poops and it's like it is coming out of different holes that are in her butt somewhere Triage Nursing Assessment: Pt brought to the ER by EMS, hypotensive, rates buttock pain as 4/10, states that she has been losing weight, has a lot of pain everytime she has a bowel movement, feels like she has a lot of fisultas in her buttocks and vagina and going down into her legs, Physician History: 36-year-old female with history of schizophrenia, recent colonoscopy almost a month ago presented in the ER with multiple psychotic symptoms. Patient reports she thinks she has multiple holes in fistulas created after colonoscopy. She thinks she has a fistula in the vagina but denies any fecal matter coming out through vagina. Patient thinks every time she has a bowel movement her buttocks shrinking. She has abdominal cramping off and on and currently not complaining of any abdominal pain. She is more concerned about making sure that she does not have any fistula in the rectum area. Denies any suicidal or homicidal ideations. Does report having pain with defecation. Timing/Duration: week(s), gradual onset, worse Activities at Onset: none Quality: aching Abdominal Pain Onset Location: generalized abdomen Pain Radiation: no radiation Severity of Pain-Max: moderate Severity of Pain-Current: none Modifying Factors: Worsens With: defecating Associated Symptoms: denies symptoms Allergies/Adverse Reactions: No Known Drug Allergies Allergy (Verified 11/29/21 16:15) Home Medications: Divalproex Sodium 500 mg PO TID 07/20/21 [History] Prazosin HCl 2 mg PO HS 07/20/21 [History] Trazodone HCl 200 mg PO HS 07/20/21 [History] haloperidoL [Haloperidol] 5 mg PO TID PRN PRN 07/20/21 [History] Ibuprofen 600 mg PO DAILY PRN 10/22/21 [History] Hx Tetanus, Diphtheria Vaccination/Date Given: No Hx Influenza Vaccination/Date Given: No Hx Pneumococcal Vaccination/Date Given: No Travel Risk - International Travel Have you traveled outside of the country in past 3 weeks: No - Coronavirus Screening Are you exhibiting any of the following symptoms?: No Close contact with a COVID-19 positive Pt in past 14-21 Days: No - Vaccine Status Have you recieved a Covid-19 vaccination: Yes 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 H.pylori infection - Past Surgical History Past Surgical History: Yes Neuro Surgical History: No Pertinent History Cardiac: No Pertinent History Respiratory: No Pertinent History Gastrointestinal: No Pertinent History Genitourinary: No Pertinent History Musculoskeletal: No Pertinent History Female Surgical History: Tubal Ligation, Other Other Surgical History: uterine ablation, egd, colonoscopy, hemmorhoid banding and polyps removed - Social History Smoking Status: Current every day smoker How long have you smoked: 24yrs Exposure to second hand smoke: Yes Drug Use: none Patient Lives Alone: No - Female History Hx Now: No (tubal, ablasion) - Nursing Vital Signs Nursing Vital Signs: Initial Vital Signs Temperature 96.7 F 11/29/21 16:06 Pulse Rate 64 11/29/21 16:06 Blood Pressure 98/64 11/29/21 16:06 O2 Sat by Pulse Oximetry 99 11/29/21 16:06 Pain Scale Pain Intensity 0 - Physical Exam SpO2: 98 Ordered Tests: Active Orders 24 hr Category Date Time Status CBC W DIFF Stat Lab 11/29/21 17:00 Completed CMP Stat Lab 11/29/21 17:00 Completed CULTURE,URINE Stat Lab 11/29/21 20:02 Received ETHYL ALCOHOL Stat Lab 11/29/21 18:25 Completed HCG,QUALITATIVE URINE Stat Lab 11/29/21 20:02 Completed LIPASE Stat Lab 11/29/21 17:00 Completed UA W/RFX CULTURE Stat Lab 11/29/21 20:02 Completed Urine Triage Profile Stat Lab 11/29/21 20:02 Completed Lab/Rad Data: Laboratory Result Diagrams 11/29/21 17:00 11/29/21 17:00 Laboratory Results 11/29/21 11/29/21 11/29/21 Range/Units 20:02 20:02 20:02 WBC (4.0-10.5) x10^3/uL RBC (4.1-5.4) x10^6/uL Hgb (12.0-16.0) g/dL Hct (35-47) % MCV (78-100) fL MCH (26-32) pg MCHC (32-36) g/dL RDW (11.5-14.0) % Plt Count (150-450) x10^3/uL MPV (7.5-11.0) fL Gran % (36.0-66.0) % Immature Gran % (Auto) (0.00-0.4) % Nucleat RBC Rel Count (0.00-0.1) % Eos # (Auto) (0-0.5) x10^3/uL Immature Gran # (Auto) (0.00-0.03) x10^3u/L Absolute Lymphs (auto) (1.0-4.6) x10^3/uL Absolute Monos (auto) (0.0-1.3) x10^3/uL Absolute Nucleated RBC (0.00-0.01) x10^3u/L Lymphocytes % (24.0-44.0) % Monocytes % (0.0-12.0) % Eosinophils % (0.00-5.0) % Basophils % (0.0-0.4) % Absolute Granulocytes (1.4-6.9) x10^3/uL Basophils # (0-0.4) x10^3/uL Sodium (137-145) mmol/L Potassium (3.5-5.1) mmol/L Chloride (98-107) mmol/L Carbon Dioxide (22-30) mmol/L Anion Gap (5-15) MEQ/L BUN (7-17) mg/dL Creatinine (0.52-1.04) mg/dL Estimated GFR ML/MIN Glucose (74-106) mg/dL Calcium (8.4-10.2) mg/dL Total Bilirubin (0.2-1.3) mg/dL AST (14-36) U/L ALT (0-35) U/L Alkaline Phosphatase (38-126) U/L Serum Total Protein (6.3-8.2) g/dL Albumin (3.5-5.0) g/dL Lipase (23-300) U/L Urinalys Dipstick Clnc MAIN LAB Urine Color YELLOW (YELLOW) Urine Appearance CLEAR (CLEAR) Urine pH 7.0 (5-6) Ur Specific [place] >=1.030 (1.005-1.025) POC Urine Protein Conf NEGATIVE (Negative) Urine Ketones NEGATIVE (NEGATIVE) Urine Nitrite NEGATIVE (NEGATIVE) Urine Bilirubin NEGATIVE (NEGATIVE) Urine Urobilinogen 0.2 (0-1) mg/dL Urine Leukocytes MODERATE (NEGATIVE) Urine WBC (Auto) 11-15 (0-5) /HPF Urine RBC (Auto) 11-15 (0-2) /HPF U Epithel Cells (Auto) MANY (FEW) /HPF Urine Bacteria (Auto) MANY (NEGATIVE) /HPF Urine RBC TRACE-INTACT (0-5) Maged/ul Unidentified Crystals 2-5 (NEGATIVE) /HPF Other Casts (Auto) 5-10 (NEGATIVE) /LPF Urine Mucus (Auto) MANY (NEGATIVE) /HPF Ur Culture Indicated? YES Urine Glucose NEGATIVE (NEGATIVE) mg/dL Urine HCG, Qual NEGATIVE (Negative) Urine Opiates Level NEGATIVE (NEGATIVE) Ur Methadone NEGATIVE (NEGATIVE) Urine Barbiturates NEGATIVE (NEGATIVE) Ur Phencyclidine (PCP) NEGATIVE (NEGATIVE) Urine Amphetamine POSITIVE (NEGATIVE) U Benzodiazepine Level NEGATIVE (NEGATIVE) Urine Cocaine NEGATIVE (NEGATIVE) Urine Marijuana (THC) POSITIVE (NEGATIVE) Ethyl Alcohol (0-10) mg/dL 11/29/21 11/29/21 11/29/21 Range/Units 18:25 17:00 17:00 WBC 8.4 (4.0-10.5) x10^3/uL RBC 4.51 (4.1-5.4) x10^6/uL Hgb 14.7 (12.0-16.0) g/dL Hct 43.7 (35-47) % MCV 96.9 (78-100) fL MCH 32.6 H (26-32) pg MCHC 33.6 (32-36) g/dL RDW 12.1 (11.5-14.0) % Plt Count 286 (150-450) x10^3/uL MPV 8.2 (7.5-11.0) fL Gran % 60.7 (36.0-66.0) % Immature Gran % (Auto) 0.2 (0.00-0.4) % Nucleat RBC Rel Count 0.0 (0.00-0.1) % Eos # (Auto) 0.11 (0-0.5) x10^3/uL Immature Gran # (Auto) 0.02 (0.00-0.03) x10^3u/L Absolute Lymphs (auto) 2.68 (1.0-4.6) x10^3/uL Absolute Monos (auto) 0.43 (0.0-1.3) x10^3/uL Absolute Nucleated RBC 0.00 (0.00-0.01) x10^3u/L Lymphocytes % 32.1 (24.0-44.0) % Monocytes % 5.1 (0.0-12.0) % Eosinophils % 1.3 (0.00-5.0) % Basophils % 0.6 (0.0-0.4) % Absolute Granulocytes 5.06 (1.4-6.9) x10^3/uL Basophils # 0.05 (0-0.4) x10^3/uL Sodium 138 (137-145) mmol/L Potassium 3.9 (3.5-5.1) mmol/L Chloride 104 (98-107) mmol/L Carbon Dioxide 26 (22-30) mmol/L Anion Gap 12.0 (5-15) MEQ/L BUN 16 (7-17) mg/dL Creatinine 0.73 (0.52-1.04) mg/dL Estimated GFR > 60.0 ML/MIN Glucose 97 (74-106) mg/dL Calcium 9.3 (8.4-10.2) mg/dL Total Bilirubin 0.60 (0.2-1.3) mg/dL AST 23 (14-36) U/L ALT 15 (0-35) U/L Alkaline Phosphatase 71 (38-126) U/L Serum Total Protein 6.9 (6.3-8.2) g/dL Albumin 4.0 (3.5-5.0) g/dL Lipase 63 (23-300) U/L Urinalys Dipstick Clnc Urine Color (YELLOW) Urine Appearance (CLEAR) Urine pH (5-6) Ur Specific [place] (1.005-1.025) POC Urine Protein Conf (Negative) Urine Ketones (NEGATIVE) Urine Nitrite (NEGATIVE) Urine Bilirubin (NEGATIVE) Urine Urobilinogen (0-1) mg/dL Urine Leukocytes (NEGATIVE) Urine WBC (Auto) (0-5) /HPF Urine RBC (Auto) (0-2) /HPF U Epithel Cells (Auto) (FEW) /HPF Urine Bacteria (Auto) (NEGATIVE) /HPF Urine RBC (0-5) Maged/ul Unidentified Crystals (NEGATIVE) /HPF Other Casts (Auto) (NEGATIVE) /LPF Urine Mucus (Auto) (NEGATIVE) /HPF Ur Culture Indicated? Urine Glucose (NEGATIVE) mg/dL Urine HCG, Qual (Negative) Urine Opiates Level (NEGATIVE) Ur Methadone (NEGATIVE) Urine Barbiturates (NEGATIVE) Ur Phencyclidine (PCP) (NEGATIVE) Urine Amphetamine (NEGATIVE) U Benzodiazepine Level (NEGATIVE) Urine Cocaine (NEGATIVE) Urine Marijuana (THC) (NEGATIVE) Ethyl Alcohol < 10 (0-10) mg/dL - Progress Progress: improved Progress Note: 11/29/21 22:11 She has unremarkable work-up except for positive methamphetamine and THC. Patient is not agitated or acutely psychotic but I believe her symptoms are secondary to drug-induced psychosis. Patient slept for a little while in the ER and is feeling better. She is counseled. Asked multiple times and she denies any suicidal or homicidal ideations. She will follow-up outpatient. Discussed signs symptoms of worsening needing return to ER which he seems understanding. 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 Follow-up with your therapist for ree valuation. Take Tylenol/ibuprofen as needed for abdominal pain. Return to ER for any worsening. Also return to ER/call 911 if having any suicidal or homicidal ideations etc.
[2021-11-29 20:55] LABS: Appearance CLEAR (CLEAR); Bilirubin NEGATIVE (NEGATIVE); Glucose NEGATIVE (NEGATIVE); Ketones NEGATIVE (NEGATIVE); Specific Gravity >=1.030 (1.005-1.025)
[2021-11-29 20:56] LABS: Dipstick done @ ? MAIN LAB; Nitrite NEGATIVE (NEGATIVE); Protein,Urine Dip NEGATIVE (Negative); RBC TRACE-INTACT Ery/ul (0-5); Urobilinogen 0.2 mg/dL (0-1)
[2021-11-29 21:00] LABS: Bacteria MANY /HPF (NEGATIVE); Epithelial Cells MANY /HPF (FEW); Mucus MANY /HPF (NEGATIVE)
[2021-11-29 21:02] LABS: Urine Cultured Indicated? YES
[2021-11-29 21:13] LABS: Barbiturate,Urine NEGATIVE (NEGATIVE); Benzodiazepine,Urine NEGATIVE (NEGATIVE); Cocaine,Urine NEGATIVE (NEGATIVE); Methadone,Urine NEGATIVE (NEGATIVE); Opiate,Urine NEGATIVE (NEGATIVE); PCP,Urine NEGATIVE (NEGATIVE); THC,Urine POSITIVE (NEGATIVE)
[2021-11-29 21:37] LABS: Amphetamine,Urine POSITIVE (NEGATIVE)
[2021-11-29 22:07] VITALS: BP 113/65; PULSE 67; O2SAT 98
== END 2021-11-29 22:22 | disposition home or self-care (01) ==
LOC: ED 16:04
DX: R10.84 Generalized abdominal pain (principal); F15.10 Other stimulant abuse, uncomplicated; F12.10 Cannabis abuse, uncomplicated; Z72.0 Tobacco use; Z79.899 Other long term (current) drug therapy
CPT/HCPCS: 36415; 80053; 80307; 81015; 81025; 83690; 85025; 87086; 99284; G0480